=== PATIENT | female | born 1945 | race Caucasian/White ===

== ENCOUNTER 2019-12-02 10:20 | Outpatient (CLI) | payer MEDICARE, OTHER, SELFPAY ==
[2019-12-02 10:46] LABS: Hematocrit 35.7 % (37.0-47.0); Hemoglobin 11.6 g/dL (12.0-15.0); Mean Corpuscular HGB Conc 32.5 g/dl (32-36); Mean Corpuscular Hemoglobin 32.8 pg (26-34); Mean Corpuscular Volume 100.8 fl (80-100); Mean Platelet Volume 9.1 fl (7.4-10.4); Platelet Count Result 351 k/mm3 (150-375); Red Blood Count 3.54 M/mm3 (4.2-5.4); White Blood Count 5.9 K/mm3 (4.5-10.0)
[2019-12-02 11:49] LABS: Alanine Aminotransferase 14 U/L (4-35); Albumin Level 4.6 g/dL (3.5-5.1); Alkaline Phosphatase 76 U/L (38-126); Aspartate Amino Transferase 22 U/L (14-36); Bilirubin,Total 0.4 mg/dL (0.2-1.3); Blood Urea Nitrogen 17 mg/dL (7-17); Calcium 9.6 mg/dL (8.4-10.2); Carbon Dioxide 28 mmol/L (22-30); Chloride 99 mmol/L (98-107); Cholesterol 213 mg/dL (0-200); Estimated Glomerular Filt Rate > 60; Glucose 132 mg/dL (65-105); HDL Direct 74 mg/dL; Potassium 4.7 mmol/L (3.4-5.0); Sodium 139 mmol/L (137-145); Triglycerides 129 mg/dL (<150)
[2019-12-02 11:59] LABS: Free T4 Free Thyroxine 0.94 ng/mL (0.78-2.19); Vitamin D 25 Hydroxy 38.5 ng/mL
[2019-12-02 12:08] LABS: Creatinine Urine 63.9 mg/dL
[2019-12-02 12:24] LABS: Hemoglobin A1C 6.7 % (<5.7)
[2019-12-02 12:47] LABS: LDL Cholesterol Direct 113 mg/dL
[2019-12-02 13:00] LABS: MALB Creatinine Ratio < 9.4 mg/g (0-30); Microalbumin Urine Random < 6.0 mg/L (0-16.7)
[2019-12-02 13:44] LABS: Folic Acid 14.7 ng/mL (2.76->20)
== END 2019-12-02 10:21 | disposition home or self-care (01) ==
PROVIDERS: PCP Internal Medicine; Visit Provider Internal Medicine
DX: R53.83 Other fatigue (principal); E11.9 Type 2 diabetes mellitus without complications; E03.9 Hypothyroidism, unspecified; E55.9 Vitamin D deficiency, unspecified
CPT/HCPCS: 36415; 80053; 80061; 82043; 82306; 82607; 82746; 83036; 84439; 84443; 85027

== ENCOUNTER 2022-07-13 14:22 | Outpatient (CLI) | payer MEDICARE, OTHER, SELFPAY ==
--- NOTE | ~2022-07-13 | US_ITS ---
EXAMINATION: US art doppler w press LE BI DATE: 07/13/2022 15:26 INDICATION: Claudication. Sensation of cold in the left leg. TECHNIQUE: Segmental pressures and plethysmographic and Doppler waveforms of the brachial and lower e xtremity arteries were obtained. COMPARISON: None. FINDINGS: Right and left brachial artery pressures of 160 mm Hg and 168 mm Hg, respectively, are concordant (no rmal difference <= 30 mmHg). The right and left high-thigh pressure indices are unable to be obtained due to inability to occlude the vessels at the cephalad aspect of the thighs. The right ankle-brachial index (MAYNOR) is 0.97 (normal >= 0.9-1). The right great toe-brachial index (T BI) is 0.76 (normal >= 0.6-0.8). The right lower extremity segmental pressure gradients are normal (n ormal gradients <= 20-30 mmHg between adjacent levels on the same leg or the same levels on the two l egs). Arterial waveforms are biphasic with brisk systolic upstrokes throughout the arteries of the ri ght lower limb. The left MAYNOR is 0.96. The left TBI is 0.39. The left lower extremity segmental pressure gradients are normal. Arterial waveforms are biphasic with brisk systolic upstrokes throughout the arteries of the left lower limb. IMPRESSION: 1. 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 2. No significant arterial occlusive disease to the right lower limb with normal right MAYNOR and TBI. Reviewed, dictated and finalized at location B. IMPRESSION: 1. 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 2. No significant arterial occlusive disease to the right lower limb with cma l right MAYNOR and TBI.
== END 2022-07-13 14:23 | disposition home or self-care (01) ==
PROVIDERS: PCP Internal Medicine; Visit Provider Internal Medicine Cardiovascular Disease
DX: I70.213 Atherosclerosis of native arteries of extremities with intermittent claudication, bilateral legs (principal); R20.9 Unspecified disturbances of skin sensation
CPT/HCPCS: 93923

== ENCOUNTER 2022-10-01 12:51 | Outpatient (CLI) | payer MEDICARE, OTHER, SELFPAY ==
[2022-10-01 13:42] LABS: Strep Group A RT-PCR NOT DETECTED (Negative)
[2022-10-01 13:54] LABS: Influenza A QL RT-PCR Negative (Negative); Influenza B QL RT-PCR Negative (Negative); RSV RNA, RT-PCR Negative (Negative); SARS-CoV-2 RNA PCR Negative
== END 2022-10-01 12:52 | disposition home or self-care (01) ==
LOC: ANHLAB 12:53
PROVIDERS: PCP Internal Medicine; Visit Provider Internal Medicine
DX: R50.9 Fever, unspecified (principal); J02.9 Acute pharyngitis, unspecified; Z20.822 Contact with and (suspected) exposure to COVID-19
CPT/HCPCS: 87637; 87651

== ENCOUNTER 2023-07-19 14:51 | Outpatient (CLI) | payer MEDICARE, OTHER, SELFPAY ==
--- NOTE | ~2023-07-19 | US_ITS ---
EXAMINATION: US carotid duplex BI DATE: 07/19/2023 15:46 INDICATION: Left carotid bruit TECHNIQUE: Grayscale, color Doppler, and pulsed Doppler images of the cervical carotid arteries were obtained. The degree of vessel stenosis is placed in one of the following categories: normal, <50%, 5 0-69%, >=70% but less than near-occlusion, near-occlusion, or total occlusion. Note that percent sten osis relative to normal distal artery lumen diameter is indirectly measured from velocity measurement s as described by Karl, et al. Radiology 2003; 229:340-346. COMPARISON: None. FINDINGS: RIGHT: The right common carotid artery (CCA) peak systolic velocity (PSV) is 66 cm/s. The right internal car otid artery (ICA) PSV is 99 cm/s. The right ICA end-diastolic velocity (EDV) is 38 cm/s. The right IC A/CCA PSV ratio is 1.5. Grayscale and color Doppler images yield an estimate of <50% diameter reducti on from plaque in the ICA. The external carotid artery (ECA) PSV is 53 cm/s. There is antegrade flow in the right vertebral artery. LEFT: The left CCA PSV is 73 cm/s. The left ICA PSV is 112 cm/s. The left ICA EDV is 29 cm/s. The left ICA/ CCA PSV ratio is 1.5. Grayscale and color Doppler images yield an estimate of <50% diameter reduction from plaque in the ICA. The ECA PSV is 68 cm/s. There is antegrade flow in the left vertebral artery . IMPRESSION: 1. <50% stenosis in the right internal carotid artery. 2. <50% stenosis in the left internal carotid artery. Reviewed, dictated and finalized at location A.
== END 2023-07-19 14:52 | disposition home or self-care (01) ==
PROVIDERS: PCP Internal Medicine; Visit Provider Internal Medicine Cardiovascular Disease
DX: R09.89 Other specified symptoms and signs involving the circulatory and respiratory systems (principal); I65.23 Occlusion and stenosis of bilateral carotid arteries
CPT/HCPCS: 93880

== ENCOUNTER → 2023-09-06 10:55 | Outpatient (CLI) | payer MEDICARE, OTHER, SELFPAY ==
--- NOTE | ~2023-09-06 | CT_ITS ---
CT of the Abdomen and Pelvis: Indication: Hydronephrosis Technique: 2.5 mm axial scans were obtained through the abdomen and pelvis prior to and following in travenous administration of 130 cc of Omnipaque 350. Dose reduction technique was used on this scan b y utilizing automated exposure control and iterative reconstruction technique. The dose-length produc t (DLP) was 1490.03 mGy-cm. Findings: Scans through the lung bases demonstrate moderate hiatal hernia. The liver, spleen, pancreas, adrenals and kidneys are within normal limits. Gallbladder is absent. Th ere are atherosclerotic calcifications of the aorta. No lymphadenopathy. No bowel obstruction or bowel wall thickening. Sigmoid diverticulosis noted. Images through the pelvis were performed. Urinary bladder unremarkable. There is streak artifact in t he pelvis from right hip arthroplasty. No pelvic mass evident. No ascites. Impression: No hydronephrosis. No abnormality of the system evident. Moderate hiatal hernia. Reviewed, dictated and finalized at location . THE ROAD DRIVER Impression: No hydronephrosis. No abnormality of the system evident. Moderate hiatal hernia.
[2023-09-06 11:25] LABS: Estimated Glomerular Filt Rate > 60
== END ==
PROVIDERS: PCP Internal Medicine; Visit Provider Urology
DX: K44.9 Diaphragmatic hernia without obstruction or gangrene (principal); N13.30 Unspecified hydronephrosis
CPT/HCPCS: 74178; Q9967

== ENCOUNTER 2023-10-03 00:31 | Day surgery (SDC) | payer MEDICARE, OTHER, SELFPAY ==
[2023-08-21 11:53] VITALS: BMI 25.0
[2023-09-13 09:47] VITALS: BMI 25.0
--- NOTE | 2023-09-29 10:15 | SUR.PREOP ---
Patient called regarding upcoming procedure. Left voicemail with date and time of procedure and contact to call with questions.
[2023-10-03 07:51] VITALS: BP 148/41; PULSE 51; RESP 17; TEMP 35.8; O2SAT 100; BMI 25.0
[2023-10-03] MEDS: LACTATED RINGERS 1,000 ML 150 ML IV CONT (08:03)
--- NOTE | 2023-10-03 08:09 | WPDANESEPPF ---
Anes - Initial Pre Proc Eval Procedure: Operation Date: 10/03/23 09:00 Proposed Procedures p Colonoscopy - Brendon José MD Date/Time: 10/03/23 08:09 Surgeon: Brendon José MD Pre Op Diagnosis: Hx colon polyps Patient Data Age: 78 Gender: F Height: 1.65 m Weight: 68.2 kg Last Vital Signs Temp 96.5 F L 10/03/23 07:51 Pulse 51 L 10/03/23 07:51 Resp 17 10/03/23 07:51 BP 148/41 H 10/03/23 07:51 Pulse Ox 100 10/03/23 07:51 O2 Del Method Room Air 10/03/23 07:51 Allergies Allergy/AdvReac Type Severity Reaction Status Date / Time vitamin E (d-alpha AdvReac Mild Rash Verified 10/03/23 07:47 tocopherol) Ouqebky-[id number] Reductase AdvReac Cramping Verified 10/03/23 07:47 Inhibitor of the Muscles Home Medications Medication Instructions Recorded Confirmed Type metoprolol succinate 25 mg 12.5 mg PO BID 11/09/21 10/03/23 History tablet,extended release 24 hr lisinopril 20 mg tablet 40 mg PO DAILY #180 tabs 05/27/23 10/03/23 Rx levothyroxine 75 mcg tablet 75 mcg PO DAILY #90 tabs 06/27/23 10/03/23 Rx lorazepam 0.5 mg tablet (Ativan) 0.5 mg PO BID PRN anxiety #30 tabs 08/07/23 10/03/23 Rx amlodipine 5 mg tablet 5 mg PO DAILY 08/21/23 10/03/23 History pantoprazole 40 mg tablet,delayed See Rx Instructions .Route 09/03/23 10/03/23 Rx release .COMPLEX #90 tabs ergocalciferol (vitamin D2) 1,250 50,000 unit PO WEEKLY #12 caps 09/16/23 10/03/23 Rx mcg (50,000 unit) capsule Patient hx anesthesia problems: none Family hx anesthesia problems: none Results Review: All pre-operative results and documents have been reviewed as part of the pre-operative evaluation. [facility] Surgical History Surgical History History of cataract surgery History of rectal surgery Family History Family History Sibling Cerebrovascular accident, Onset Age: 70 Family history of malignant neoplasm of breast in first degree relative Patient's brother is Family history of malignant neoplasm Mother Patient's mother is Social History Social History Smoking packs per day: 0.5 Smoking cigarettes per day: 10.0 Years smoked: 20 Smoking pack-years: 10.00 Smoking status: Former smoker Tobacco type: cigarettes Second hand tobacco smoke exposure: No Smoking end date: 10/02/99 Alcohol intake: current Drinks per week: 2 Substance use type: does not use Lack of Transportation: YES Lack of Food: Never True Current Housing: Decline to Answer Concerned About Future Housing: Decline to Answer Difficulty Paying Gas/Electric Bills: Decline to Answer Difficulty Paying for Meds: Decline to Answer Currently Unemployed: Decline to Answer Education: Decline to Answer Difficulty w/ Childcare or Family Care: Decline to Answer Living arrangements: alone Anes - Eval Final PreProcedure Day of Procedure 10/03/23 08:09 Patient weight: normal Heart: regular rate and rhythm Lungs: clear to auscultation Airway: Mallampati scale class II Neurological: alert and oriented Last oral intake: >/= 8 hours ASA classification: III Emergent: no Anesthetic plan: proceed Anesthesia type and monitoring: general GIVS and standard monitoring Results Review: All pre-operative results and documents have been reviewed as part of the pre-operative evaluation. Informed Consent: The patient's anesthetic plan and its attendant risks and benefits were discussed with the patient/family/POA. Questions were solicited and answers provided to the satisfaction of the patient/family/POA.
--- NOTE | 2023-10-03 08:10 | PM.HPGS ---
History of Present Illness History of Present Illness Consent: Risks, benefits, and alternatives have been discussed and questions answered. Patient agrees to proceed with procedure. Chief complaint: Hx colon polyps Narrative: Alyssa Coreas is a 78 year old female Referred for colon cancer screening. She had a tubular adenoma removed about 5 years ago. Review of Systems Review of Systems: All systems reviewed & are unremarkable except as noted in HPI and below PMFSH Surgical History Surgical History History of cataract surgery History of rectal surgery Family History Family History Sibling Cerebrovascular accident, Onset Age: 70 Family history of malignant neoplasm of breast in first degree relative Patient's brother is Family history of malignant neoplasm Mother Patient's mother is Social History Social History Smoking packs per day: 0.5 Smoking cigarettes per day: 10.0 Years smoked: 20 Smoking pack-years: 10.00 Smoking status: Former smoker Tobacco type: cigarettes Second hand tobacco smoke exposure: No Smoking end date: 10/02/99 Alcohol intake: current Drinks per week: 2 Substance use type: does not use Lack of Transportation: YES Lack of Food: Never True Current Housing: Decline to Answer Concerned About Future Housing: Decline to Answer Difficulty Paying Gas/Electric Bills: Decline to Answer Difficulty Paying for Meds: Decline to Answer Currently Unemployed: Decline to Answer Education: Decline to Answer Difficulty w/ Childcare or Family Care: Decline to Answer Living arrangements: alone Meds Home Medications and Allergies Home Medications Medication Instructions Recorded Confirmed Type metoprolol succinate 25 mg 12.5 mg PO BID 11/09/21 10/03/23 History tablet,extended release 24 hr lisinopril 20 mg tablet 40 mg PO DAILY #180 tabs 05/27/23 10/03/23 Rx levothyroxine 75 mcg tablet 75 mcg PO DAILY #90 tabs 06/27/23 10/03/23 Rx lorazepam 0.5 mg tablet (Ativan) 0.5 mg PO BID PRN anxiety #30 tabs 08/07/23 10/03/23 Rx amlodipine 5 mg tablet 5 mg PO DAILY 08/21/23 10/03/23 History pantoprazole 40 mg tablet,delayed See Rx Instructions .Route 09/03/23 10/03/23 Rx release .COMPLEX #90 tabs ergocalciferol (vitamin D2) 1,250 50,000 unit PO WEEKLY #12 caps 09/16/23 10/03/23 Rx mcg (50,000 unit) capsule Allergies Allergy/AdvReac Type Severity Reaction Status Date / Time vitamin E (d-alpha AdvReac Mild Rash Verified 10/03/23 07:47 tocopherol) [id number] Reductase AdvReac Cramping Verified 10/03/23 07:47 Inhibitor of the Muscles Vital Signs Vital Signs - 24 hr 10/03/23 07:51 Temperature 35.8 C L Pulse Rate 51 L Respiratory Rate 17 Blood Pressure 148/41 H Pulse Oximetry 100 Oxygen Delivery Room Air Exam Const: General: alert Orientation/consciousness: patient oriented x3 Resp: Auscultation: clear to auscultation bilaterally Cardio: Rhythm: regular rhythm GI: GI Palp: Yes Soft to palpation and No Tenderness to palpation present (GI) Neuro: General: patient oriented x3 Assessment and Plan Assessment and plan (1) Colon cancer screening: Code(s): Z12.11 - Encounter for screening for malignant neoplasm of colon Status: Acute Assessment and Plan: Colonoscopy with possible biopsy or polypectomy or cautery or injection of substances.
[2023-10-03 09:24] VITALS: BP 105/47; PULSE 47; RESP 14; O2SAT 99
[2023-10-03 09:34] VITALS: BP 123/54; PULSE 50; RESP 15; O2SAT 99
[2023-10-03 09:44] VITALS: BP 132/52; PULSE 50; RESP 17; O2SAT 98
== END 2023-10-03 10:13 | disposition home or self-care (01) ==
PROVIDERS: PCP Internal Medicine; Visit Provider Internal Medicine Gastroenterology
PROC: 0DJD8ZZ Inspection of Lower Intestinal Tract, Via Natural or Artificial Opening Endoscopic (ICD-10-PCS; CPT 45378; principal; 2023-10-03 09:00)
DX: Z12.11 Encounter for screening for malignant neoplasm of colon (principal); D12.3 Benign neoplasm of transverse colon; K63.5 Polyp of colon; K57.30 Diverticulosis of large intestine without perforation or abscess without bleeding; Z87.891 Personal history of nicotine dependence
CPT/HCPCS: 45380; 88305; J1596; J2704; J7120

== ENCOUNTER 2024-01-30 12:15 | Outpatient (CLI) | payer MEDICARE, OTHER, SELFPAY ==
--- NOTE | ~2024-01-30 | XR_ITS ---
Clinical Indication: Cough PA and lateral views of the chest: Comparison: 05/22/2016 Findings: The lungs are clear, without evidence of focal consolidation or pleural effusion. Cardiome diastinal silhouette is within normal limits. Bones and soft tissues are unremarkable. Impression: Normal chest. Reviewed, dictated and finalized at [facility]. Impression: Normal chest.
== END 2024-01-30 12:16 ==
LOC: MICIMG 12:17
PROVIDERS: PCP Internal Medicine; Visit Provider Internal Medicine
DX: R05.9 Cough, unspecified (principal)
CPT/HCPCS: 71046

== ENCOUNTER 2024-09-19 10:16 | Outpatient (CLI) | payer MEDICARE, OTHER, SELFPAY ==
--- NOTE | ~2024-09-19 | XR_ITS ---
Right Hand Technique: PA, oblique, and lateral views were obtained. Clinical History: Pain Findings: No acute fracture or dislocation is seen. Osseous alignment is anatomic. There is advanced degenerative change of the first CMC joint, interphalangeal joint of the thumb, and second DIP joint. There are additional mild degenerative changes scattered in the interphalangeal joint of the fingers otherwise. Soft tissues are unremarkable. Impression: Degenerative changes, as above. Reviewed, dictated and finalized at location M. NT ENGINEER Impression: Degenerative changes, as above.
--- NOTE | ~2024-09-19 | XR_ITS ---
Left Hand Technique: PA, oblique, and lateral views were obtained. Clinical History: Pain Findings: No acute fracture or dislocation is seen. Osseous alignment is anatomic. There is moderate to advanced degenerative change of the first CMC joint. Soft tissues are unremarkable. Impression: Moderate to advanced degenerative change of the first CMC joint. Reviewed, dictated and finalized at location . ITAL SOCIAL WORKER Impression: Moderate to advanced degenerative change of the first CMC joint.
== END 2024-09-19 10:17 | disposition home or self-care (01) ==
PROVIDERS: PCP Internal Medicine; Visit Provider Internal Medicine
DX: M18.0 Bilateral primary osteoarthritis of first carpometacarpal joints (principal); M19.041 Primary osteoarthritis, right hand
CPT/HCPCS: 73130

== ENCOUNTER 2024-12-06 13:15 | Outpatient (CLI) | payer MEDICARE, OTHER, SELFPAY ==
--- NOTE | ~2024-12-06 | XR_ITS ---
XR foot LT 2V Ordering provider: Grant Irvin History: . Multiple joint pain . Comparison: None. FINDINGS: BONES: No acute fracture or dislocation. JOINT SPACES: Narrowing of the proximal and distal interphalangeal joints. No tarsal coalition. SOFT TISSUES: Normal. IMPRESSION: No acute osseous abnormality left foot. Reviewed, dictated and finalized at location A. ANALYTICS ANALYST
--- NOTE | ~2024-12-06 | XR_ITS ---
XR sacroiliac joints min 3V Ordering provider: Grant Irvin History: . Multiple joint pain . Comparison: None. FINDINGS: BONES: No acute fracture or dislocation. JOINTS: The bilateral sacroiliac joint spaces appear well maintained. No bony fusion of the sacroilia c joints or bony erosions. Right hip arthroplasty. SOFT TISSUES: Unremarkable. IMPRESSION: NO ACUTE OSSEOUS ABNORMALITY. NORMAL SACROILIAC JOINTS. Reviewed, dictated and finalized at location A. CTOR [place]
--- NOTE | ~2024-12-06 | XR_ITS ---
XR foot RT 2V Ordering provider: Grant Irvin History: . Multiple joint pain . Comparison: None. FINDINGS: BONES: No acute fracture or dislocation. Mild osteopenia of the bones. JOINT SPACES: Narrowing of the proximal and distal interphalangeal joints. No tarsal coalition. SOFT TISSUES: Normal. IMPRESSION: No acute osseous abnormality of the right foot. Reviewed, dictated and finalized at location A. ATRIC NURSE
== END 2024-12-06 13:16 | disposition home or self-care (01) ==
PROVIDERS: PCP Internal Medicine
DX: R53.81 Other malaise (principal); M25.50 Pain in unspecified joint; M79.10 Myalgia, unspecified site
CPT/HCPCS: 72202; 73620

== ENCOUNTER 2025-02-11 08:34 | Outpatient (CLI) | payer MEDICARE, OTHER, SELFPAY ==
--- OUTSIDE RECORDS SUMMARY | 2025-02-11 08:41 | XMS_ITS | Clinical Summary ---
Author Organization [facility] Address [address] [place] [address] Care Team Providers Care Tower Air Traffic Control Specialist Name Role Phone JoshuaSolo chaparro Primary Care Provider Scotty Saini MD Unavailable [phone] Nitin Carpenter MD Unavailable Source Comments [facility],non-owned Affiliates and Associated Physician Practices is amultiple site organization consisting of ambulatory clinics and hospital sitesin [place], [place], [place] and [place]. This disclosure is being madepursuant to the Care Everywhere program and may not contain all information available regarding this patient. Last updated 18.[facility] [employer] Allergies Active Allergy Reactions Criticality Noted Date Comments Hmg-Coa-R Inhibitors Unknown Medium 03/14/2023 rosuvastatin Medications * Be aware that medications may not be up to date on this document. Alwaysverify current medications with the patient. lisinopril (PRINIVIL; ZESTRIL) 20 MG tablet 12/20/2018 Active levothyroxine (SYNTHROID) 75 MCG tablet 12/19/2018 Active pantoprazole EC (PROTONIX) 40 MG tablet 10/16/2018 Active cyclobenzaprine (FLEXERIL) 10 MG tablet Take 1 (one) tablet by mouth nightly as needed for Muscle Spasms Active acetaminophen (TYLENOL) 325 MG tablet Take 1 (one) tablet by mouth every 6 hours as needed Active Ergocalciferol (VITAMIN D2) 10 MCG (400 UNIT) every 7 days 06/02/2020 A ctive LORazepam (ATIVAN) 0.5 MG tablet Take 1 (one) tablet by mouth every 8 hours as needed for Anxiety Active metoprolol tartrate IR (LOPRESSOR) 25 MG tablet Take 1 (one) tablet by mouth 2 times daily Active traMADol (ULTRAM) 50 MG tablet Take 1 (one) tablet by mouth every 6 hours as needed for Pain 20 tablet 03/24/2022 Active Active Problems Problem Noted Date Diagnosed Date Hyperlipidemia LDL goal <70 12/28/202209/02 Ureteral dilatation 10/26/2022 09/26/2023 Nuclear sclerotic cataract of right eye 09/27/2009/26/2023 Overview (09/26/2023): Added automatically from request for surgery [id number] Kidney stone 08/13/2022 09/26/2023 Overview (09/26/2023): Added automatically from request for surgery [id number] Left leg pain 06/22/2022 09/26/2023 PAD (peripheral artery disease) 06/22/2022 09/26/2023 Sensation of cold in leg 06/22/2022 023 Palpitations 07/22/2021 09/26/2023 Anxiety 07/05/2021 09/26/2023 Elevated troponin 07/05/2021 09/26/2023 Hypothyroidism 07/05/2021 09/26/2023 Left shoulder pain 07/05/2021 09/26/2023 Primary hypertension 07/05/2021 09/26/2023 Chronic rhinitis 06/26/2018 09/26/2023 Lesion of throat 06/26/2018 09/26/2023 Prolapse of vaginal vault after hysterectomy 09/26/2023 Prolapse of vaginal wall 03/22/2012 023 Spinal stenosis Arthritis Kyphosis deformity of spine Resolved Problems Problem Noted Date Diagnosed Date Resolved Date POP-Q stage 3 rectocele 10/2021 Family History Medical History Relation Name Comments Other - Cardiac Father Other - Cardiac Mother Relation Name Status Comments Father Mother Social History Tobacco Use Types Packs/Day Years Used Date Smoking Tobacco: Former Smokeless Tobacco: Never Tobacco Cessation:Counseling Given: Not Answered Comments:20 years ago Alcohol Use Standard Drinks/Week Comments Yes 0 (1 standard drink = 0.6 oz pur e alcohol) occasional PHQ-2 Answer Date Recorded PHQ2 TOTAL SCORE 0 04/19/2022 Comments No Sex and Gender Information Value Date Recorded Sex Assigned at Not on file Legal Sex Female 11:09 AM CDT Gender Identity Not on file Sexual Orientation Not on file Last Filed Vital Signs Vital Sign Reading Time Taken Comments Blood Pressure 146/63 02/14/2024 4:13 PM CDT Pulse 61 02/14/2024 4:13 PM CDT Temperature 36.7 C (98 F) 03/24/2022 11:13 AM CDT Respiratory Rate 16 03/24/2022 11:13 AM CDT Oxygen Saturation 95% 03/24/2022 11:13 AM CDT Inhaled Oxygen Concentration - - Weight 69.4 kg (153 lb) 02/14/2024 4:13 PM CDT Height 166.4 cm (5' 5.5) 02/14/2024 4:13 PM CDT Body Mass Index 25.07 02/14/2024 4:13 PM CDT Plan of Treatment Upcoming Encounters Date Type Department Care Team (Late st Contact Info) Description 04/02/2025 4:30 PM CDT Office Visit [facility] - JAVA DEVELOPER [address] [place] [phone] Nitin Carpenter MD [address] [place] [phone] Health Maintenance Due Date Last Done Comments BONE DENSITY TESTING 1945 MEDICARE AWV 12 MONTHS 1945 DTAP/TDAP/TD VACCINES (1 - Tdap) 1965 PNEUMOCOCCAL VACCINE 50+ (1 of 1 - PCV) 01/04/1996 ZOSTER VACCINE (1 of 2) 01/04/1996 Respiratory Syncytial Virus (RSV) Vaccine Pt: or over 60 yrs (1 - 1-dose 75+ series) 2021 COVID-19 VACCINE ( - 2023-2 5 season) 2024 12/04/2020, 11/06/2020 DEPRESSION SCREENING 10/02/2024 04/19/2022 INFLUENZA VACCINE (Season Ended) 2025 HEPATITIS B VACCINE Aged Out No longe r eligible based on patient's age to complete this topic HIB VACCINE Aged Out No longer eligi ble based on patient's age to complete this topic HPV VACCINE Aged Out No longer eligi ble based on patient's age to complete this topic MENINGOCOCCAL (Group B) VACCINE SHARED DECISION-MAKING Aged Out No longer eligible based on patient's age to complete this topic MENINGOCOCCAL GROUPS A/C/Y/W VACCINE Aged Out No longer eligible b ased on patient's age to complete this topic Insurance MEDICARE MEDICAID - OUT OF [facility] MEDICARE [facility] MEDICARE [facility] SPECIALTY RISK Care Teams Tower Air Traffic Control Specialist Relationship Specialty Start Date End Date Solo Jama DO [address] [facility] [address] [place] [address] PCP - General 03/16/18 Scotty Saini MD [address] [phone] Dialysis Clinical Manager Obstetrics and Gynecology 06/18/21 Nitin Carpenter MD [address] [phone] Dialysis Clinical Manager Obstetrics and Gynecology 06/18/21
--- OUTSIDE RECORDS SUMMARY | 2025-02-11 08:41 | XMS_ITS | Encounter Summary ---
Author Organization [facility] Address [address] [place] [address] Care Team Providers Care Refractory Products Supervisor Name Role Phone Christiano Palencia DO Primary Care Provider [phone] Encounter Details Date Type Department Care Team (Late Contact Info) Description 12/26/2024 Results Follow-Up [facility] Cardiology [address] [facility] [address] [place] [address] Precious Garza NP [address] [facility] [address] [place] [address] Social History Tobacco Use Types Packs/Day Years Used Date Smoking Tobacco: Former Cigarettes 0.4 15 1 - 07/22/2001 Smokeless Tobacco: Never Social Connection and Isolat ion Panel [NHANES] Answer Date Recorded In a typical week, how many times do you talk on the phone with family, friends, or neighbors? More than three times a week 07/06/2021 How often do you get togethe r with friends or relatives? More than three times a week 07/06/2021 How often do you attend chur ch or episcopal services? Never 07/06/2021 Do you belong to any clubs o r organizations such as sabianism groups, unions, fraternal or athletic groups, or school groups? Yes 07/06/2021 How often do you attend meet ings of the clubs or organizations you belong to? More than 4 times per year 07/06/2021 Are you , , di vorced, , never , or living with a partner? 07/06/2021 AUDIT-C Answer Date Recorded Q1: How often do you have a drink containing alc ohol? 2-4 times a month 03/23/2023 Q2: How many drinks containi ng alcohol do you have on a typical day when you are drinking? 1 or 2 03/23/2023 Q3: How often do you have si x or more drinks on one occasion? Never 03/23/2023 Overall Financial Resource Strain (CARDIA) Answe r Date Recorded How hard is it for you to pa y for the very basics like food, housing, medical care, and heating? Not very hard 07/06/2021 PRAPARE - Transportation Answer Date Re corded In the past 12 months, has l ack of transportation kept you from medical appointments or from getting medications? No 01/2021 In the past 12 months, has l ack of transportation kept you from meetings, work, or from getting things needed for daily living? No 07/06/2021 Personal Safety Answer Date Recorded Have you ever been in or are you currently in a harmful physical or emotional relationship or is someone making you feel afraid or unsafe? 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
--- OUTSIDE RECORDS SUMMARY | 2025-02-11 08:41 | XMS_ITS | Clinical Summary ---
Author Organization [facility] [address] [place] [address] Care Team Providers Care Project Asst Name Role Phone Christiano Palencia DO Primary Care Provider [phone] Allergies Active Allergy Reactions Criticality Noted Date Comments Eunasjw-Yzk-Uoo Reductase Inhibitors Muscle pain Medium 03/14/[address] (PROTONIX) 40 mg EC tabletIndicatio ns:Stress Ulcer Prophylaxis Take 1 tablet (40 mg total) by mouth daily after lunch 04/29/20 18 Active levothyroxine (SYNTHROID, LEVOTHROID) 75 mcg tabletIndicatio ns:hypothyroidi sm Take 1 tablet (75 mcg total) by mouth service sprinkler helper before breakfast 06/07/20 18 Active ergocalciferol (VITAMIN D) 50,000 unit capsuleIndicati ons:Osteoporosi s,supplement Take 1 capsule (50,000 Units total) by mouth as needed Wednesdays Active LORazepam (ATIVAN) 0.5 mg tabletIndicatio ns:anxiety Take 1 tablet (0.5 mg total) by mouth 2 (two) times a day as needed for anxiety Active acetaminophen (TYLENOL) 325 mg tabletIndicatio ns:Pain Take 2 tablets (650 mg total) by mouth every 6 (six) hours as needed for pain Active cyclobenzaprine (FLEXERIL) 10 mg tabletIndicatio ns:Muscle Spasm Take 1 tablet (10 mg total) by mouth 2 (two) times a day as needed for muscle spasms Active melatonin 5 mg tabletIndicatio ns:sleep Take 1 tablet (5 mg total) by mouth nightly as needed (sleep) Active pseudoephedrine (SUDAFED) 30 mg tabletIndicatio ns:Nasal Congestion Take 1 tablet (30 mg total) by mouth every 4 (four) hours as needed for congestion Active aspirin 81 mg enteric coated tablet Take 1 tablet (81 mg total) by mouth daily 30 tablet 11 12/20/19 23 Active Additional Information Patient not taking.Reported on 11/19/2024 celecoxib (CeleBREX) 200 mg capsule Take 1 capsule (200 mg total) by mouth daily 10/30/19 25 Active lisinopriL (PRINIVIL,ZESTR IL) 20 mg tablet Take 2 tablets (40 mg total) by mouth daily 09/18/20 24 Active amLODIPine (NORVASC) 5 mg tabletIndicatio ns:Primary hypertension Take 1 tablet by mouth once daily 90 tablet 1 11/25/19 25 Active metoprolol tartrate (LOPRESSOR) 25 mg immediate release tabletIndicatio ns:Palpitations Take 2 tablets (50 mg total) by mouth 2 (two) times a day 120 tablet 11 01/03/20 25 Active Praluent Pen 75 mg/mL pen injector INJECT 75MG UNDER THE SKIN EVERY 14 DAYS 2 mL 01/28/20 25 Active Praluent Pen 75 mg/mL pen injector INJECT 75MG UNDER THE SKIN EVERY 14 DAYS 2 mL 12/31/19 25 025 Discontinued Active Problems Problem Noted Date Diagnosed Date Left carotid bruit 07/04/2023 Atypical chest pain 07/04/2023 Hyperlipidemia LDL goal <70 12/28/2022 Nuclear sclerotic cataract of right eye 09/27/20 22 Overview (09/27/2022): Added automatically from request for surgery [id number] Sensation of cold in leg 06/22/2022 Left leg pain 06/22/2022 PAD (peripheral artery disease) 06/22/2022 Palpitations 07/22/2021 Elevated troponin 07/05/2021 Left shoulder pain 07/05/2021 Hypothyroidism 07/05/2021 Primary hypertension 07/05/2021 Anxiety 07/05/2021 Chronic rhinitis 06/26/2018 Lesion of throat 06/26/2018 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 of vaginal wall 03/22/2012 Encounters Date Type Department Care Team Description 01/01/2025 Telephone [place] [address] [place] [phone] Chandu Chowdary MD 12/27/2024 Telephone [place] [address] [place] [phone] Precious Myers NP 12/26/2024 Results Follow-Up [place] [address] [place] [phone] Precious Myers NP 12/26/2024 Results Follow-Up [place] [address] [place] [phone] Precious Myers NP 12/25/2024 10:15 AM CDT Ancillary Procedure [place] [address] [place] [phone] Dyspnea on exertion 12/24/2024 2:30 PM CDT Office Visit [place] [address] [place] [phone] Precious Myers NP Dyspnea on exertion (Primary Dx); Palpitations; Fatigue, unspecified type; PAD (peripheral artery disease); Primary hypertension 12/23/2024 Telephone [place] [address] [place] [phone] Chandu Chowdary MD 12/17/2024 2:30 PM CDT Ancillary Procedure [place] [address] [place] [phone] Palpitations 12/16/2024 Telephone [place] [address] [place] [phone] Chandu Chowdary MD 11/19/2024 12:00 PM CODING ADVISOR Office Visit [place] [address] [place] [phone] Precious Myers NP Palpitations (Primary Dx); PAD (peripheral artery disease); Hyperlipidemia LDL goal <70; Primary hypertension from Last 3 Months Surgical History Surgery Date Site/Laterality Comments TOTAL HIP ARTHROPLASTY 10/02/2010 - 10/01/2011 Right BLADDER SUSPENSION x2 2004 & 2011 HYSTERECTOMY 10/02/2004 - 10/01/2005 BREAST BIOPSY 04/26/2022 Left Benign URETERAL STENT PLACEMENT 08/02/2022 - 08/31/2022 COLONOSCOPY Multiple-- Last ~2018 ANTERIOR AND POSTERIOR VAGINAL REPAIR 03/02/2022 - 03/31/2022 Medical History Medical History Date Comments Cataract Allergic rhinitis Anxiety Bone fracture HTN (hypertension) Dxd 1981 Thyroid disease Acid reflux Gastric ulcer Hypothyroidism Family History Medical History Relation Name Comments Stroke Brother Heart disease Father Heart disease Mother Cancer Other 1 Diabetes Other 1 Family history of diabetes mellitus - (Added by TW Conv) Heart disease Other 1 Hypertension Other 2 Family history of hypertension - (Added by TW Conv) Skin cancer Other 3 Family history of skin cancer - (Added by TW Conv) Anesthesia problems Neg Hx Relation Name Status Comments Brother (Age 64) Father (Age 86) Mother (Age 74) Other 1 Other 2 Other 3 Sister 1 Alive Sister 2 Alive Social History Tobacco Use Types Packs/Day Years Used Date Smoking Tobacco: Former Cigarettes 0.4 15 1 - 07/22/2001 Smokeless Tobacco: Never Tobacco Cessation:Counseling Given: Not Answered Social Connection and Isolat ion Panel [NHANES] Answer Date Recorded In a typical week, how many times do you talk on the phone with family, friends, or neighbors? More than three times a week 07/06/2021 How often do you get togethe r with friends or relatives? More than three times a week 07/06/2021 How often do you attend chur ch or moravian services? Never 07/06/2021 Do you belong to any clubs o r organizations such as yarsanism groups, unions, fraternal or athletic groups, or [...] on file Legal Sex Female 8:38 PM CODING ADVISOR Gender Identity Not on file Sexual Orientation Not on file Obstetrics History Last Filed Vital Signs Vital Sign Reading Time Taken Comments Blood Pressure 140/60 12/24/2024 2:29 PM CDT Pulse 68 12/24/2024 2:29 PM CDT Temperature 36.4 C (97.6 F) 03/23/2023 9:35 AM CDT Respiratory Rate 18 03/23/2023 9:35 AM CDT Oxygen Saturation 95% 12/24/2024 2:29 PM CDT Inhaled Oxygen Concentration - - Weight 69.9 kg (154 lb) 12/24/2024 2:29 PM CDT Height 165.1 cm (5' 5) 12/24/2024 2:29 PM CDT Body Mass Index 25.63 12/24/2024 2:29 PM CDT Plan of Treatment Health Maintenance Due Date Last Done Comments Depression Screening 1945 Hepatitis C Screening 1945 Osteoporosis Screening-Bone Density Scan 1945 DTaP/Tdap/Td Vaccine (1 - Tdap) 1957 Hepatitis B Screening 01/04/1964 Pneumococcal vaccine 65+ (1 of 1 - PCV) 01/04/1996 Zoster Vaccine (1 of 2) 01/04/1996 Well Visit 65+ 2011 Fall Risk Assessment 03/23/2024 03/23/2023 Covid-19 Vaccine (4 - 2023-2 5 season) 2024 07/26/2021, 12/04/2020, 11/06/2020 Influenza Vaccine (Season Ended) 2025 Breast Cancer Screening-Mammogram Discontinued 02/27/2024, 02/27/2024, 02/23/2022, Additional history exists Medical Devices Implanted Type Area Drywall Installer Device Identifier Shelf Expiration Date Model / Serial / Lot [employer] Lens Iol Tecnis Smplcty 1-Pc Clr [place] 19.5 Diopter [id number] - [id number] - [id number] Implanted:Qty: 1 on 10/19/2022 by Darryn Becker MD at [facility] Lens Right: Eye [employer] [id number] 02/26/2025 [id number] / [id number] / [employer] Lens Iol Tecnis Smplcty 1-Pc Clr [place] 22.5 Diopter [id number] - [id number] - [id number] Implanted:Qty: 1 on 11/30/2022 by Darryn Becker MD at [facility] Lens Left: Eye [employer] 03/02/2025 [id number] / [id number] / 0 Artificial Right: Hip [employer] Device Closure Vascade Od5 Fr Femoral Artery [id number] - [id number] Implanted:Qty: 1 on 03/23/2023 by Niko Simpson MD at [facility] 10/24/2024 [id number] / / [id number] Procedures Procedure Name Priority Date/Time Associated Diagnosis Comments TRANSTHORACIC ECHO (TTE) COMPLETE W DOPPLER/CF WO CONTRAST Routine 12/25/2024 10:57 AM CDT Dyspnea on exertion RETICULOCYTES Routine 12/24/2024 3:36 PM CDT Dyspnea on exertion CBC WITH AUTO DIFFERENTIAL Routine 12/24/2024 3:36 PM CDT Dyspnea on exertion EXTENDED/SNF HOLTER PATCH (>48 HOURS UP TO 7 DAYS) Routine 12/17/2024 2:52 PM CDT Palpitations SCREENING MAMMOGRAM BILATERAL W JOSE Schedule Routine, Read Routine (OP Routine) 02/27/2024 2:14 PM CDT Screening mammogram, encounter for from Last 3 Months or Most Recently Relevant to Health Maintenance Results * TRANSTHORACIC ECHO (TTE) COMPLETE W DOPPLER/CF WO CONTRAST (12/25/2024 10:57 AM CDT) Anatomical Region Laterality Modality Ultrasound 12/25/2024 10:1 6 AM CDT Narrative 12/25/2024 2:36 PM CDT [facility]iology [address] [facility] [place] [address] [address] [address] [facility] [address] [address] P:[phone] P:[phone] Echocardiographic Report Patient Name: TIM COREAS : 1945 Study Date: 12/25/2024 10:16:59 AM Gender: F Tech: Location: [facility] Provider: PRECIOUS MYERS Height(Cm): 165 BSA: 1.79 Weight(Kg): 69.9 Heart Rate: 62 BP: 140 / 60 Quality: Good Order Provider: PRECIOUS MYERS PROCEDURES: Echocardiographic Report: Transthoracic echocardiogram with complete 2D, M-Mode, and color Doppler examination. INDICATIONS: Dyspnea on Exertion. MEASUREMENTS: 2D/MM Value Range Doppler Value Range EF Mod BP 65 % [ 54 - 74 ] AV Mean PG 5 mmHg EF Teich MM 60 % [ 54 - 74 ] AV Peak [place] 1.49 m/s [ 1.00 - 1.70 ] LVIDd 2D 4.26 cm [ 3.80 - 5.20 ] AV Peak PG 9 mmHg LVIDd MM 5.05 cm [ 3.80 - 5.20 ] AV VTI 36.00 cm LVIDs 2D 3.14 cm [ 2.20 - 3.50 ] LVOT Peak [place] 0.82 m/s [ 0.70 - 1.10 ] LVIDs MM 3.43 cm [ 2.20 - 3.50 ] LVOT VTI 18.59 cm LVPWd MM 0.72 cm [ 0.60 - 0.90 ] MV E Peak [place] 0.85 m/s [ 0.60 - 1.30 ] IVSd 2D 0.81 cm [ 0.60 - 0.90 ] MV A Peak [place] 1.07 m/s [ 1.00 - 1.20 ] IVSd MM 0.87 cm [ 0.60 - 0.90 ] MV Decel Time 269 msec [ 104 - 258 ] LA Dimension MM 3.55 cm [ 2.70 - 3.80 ] PV Peak Milan 0.93 m/s [ 0.40 - 0.80 ] AoR Diam MM 2.65 cm [ 2.70 - 3.70 ] TR Peak [place] 2.86 m/s [ 1.00 - 2.80 ] LA Volume Index 38 cc/m2 [ 16 - 34 ] TR Peak PG 33 mmHg ACS MM 1.59 cm RVSP 41.00 mmHg [ 10.00 - 36.00 ] Lateral E` 0.07 m/s [ 0.10 - 0.15 ] E` 0.03 m/s E/E` 12 2D/MM Value Range Doppler Value Range - FINDINGS: Interpretation Site: Exam was interpreted at [facility]. Left Ventricle: Normal left ventricular size. Mild concentric left ventricular hypertrophy. Asymmetric septal hypertrophy. Normal global left ventricular systolic function. Impaired diastolic relaxation Grade I. Ejection fraction is measured at 65 %. Right Ventricle: Normal right ventricular size. Normal right ventricular systolic function. Left Atrium: There is moderate enlargement of left atrium. Right Atrium: The right atrium is normal in size. Atrial Septum: Normal atrial septum. Mitral Valve: Mild mitral valve regurgitation. Aortic Valve: No evidence of hemodynamically significant aortic stenosis by Doppler. Trileaflet aortic valve. Mild aortic valve regurgitation. Tricuspid Valve: Estimated peak RVSP is 41 mmHg. Mild tricuspid regurgitation. Pulmonic Valve: Pulmonic valve not well visualized. Trivial regurgitation in the pulmonic valve. Pericardium: Normal pericardium with no significant pericardial effusion. Aorta: Normal aortic root. IVC: Normal size and no respiratory collapse consistent with elevated right atrial pressure (5-10 mmHg). CONCLUSIONS: Normal left ventricular size. Mild concentric left ventricular hypertrophy. Asymmetric septal hypertrophy. Normal global left ventricular systolic function. Impaired diastolic relaxation Grade I. Ejection fraction is measured at 65 %. Normal right ventricular size. Normal right ventricular systolic function. There is moderate enlargement of left atrium. Mild mitral valve regurgitation. Mild aortic valve regurgitation. Estimated peak RVSP is 41 mmHg. Mild tricuspid regurgitation. Electronically Signed By: Carmen Blanca MD 12/25/2024 2:36:12 PM CDT Procedure Note Carmen Blanca MD - 12/25/2024 [facility] Cardiology [address] [facility] [address] [address] [address] [facility] [address] [address] P:[phone] P:[phone] Echocardiographic Report Patient Name: TIM COREAS : 1945 Study Date: 12/25/2024 10:16:59 AM Gender: F Tech: Location: [facility] Provider: PRECIOUS MYERS Height(Cm): 165 BSA: 1.79 Weight(Kg): 69.9 Heart Rate: 62 BP: 140 / 60 Quality: Good Order Provider: PRECIOUS MYERS PROCEDURES: Echocardiographic Report: Transthoracic echocardiogram with complete 2D, M-Mode, and color Dopplerexamination. INDICATIONS: Dyspnea on Exertion. MEASUREMENTS: 2D/MM Value Range Doppler ValueRange EF Mod BP 65 % [ 54 - 74 ] AV Mean PG 5mmHg EF Teich MM 60 % [ 54 - 74 ] AV Peak Milan 1.49m/s [ 1.00 - 1.70 ] LVIDd 2D 4.26 cm [ 3.80 - 5.20 ] AV Peak PG 9mmHg LVIDd MM 5.05 cm [ 3.80 - 5.20 ] AV VTI 36.00cm LVIDs 2D 3.14 cm [ 2.20 - 3.50 ] LVOT Peak [place] 0.82m/s [ 0.70 - 1.10 ] LVIDs MM 3.43 cm [ 2.20 - 3.50 ] LVOT VTI 18.59cm LVPWd MM 0.72 cm [ 0.60 - 0.90 ] MV E Peak [place] 0.85m/s [ 0.60 - 1.30 ] IVSd 2D 0.81 cm [ 0.60 - 0.90 ] MV A Peak [place] 1.07m/s [ 1.00 - 1.20 ] IVSd MM 0.87 cm [ 0.60 - 0.90 ] MV Decel Time 269msec [ 104 - 258 ] LA Dimension MM 3.55 cm [ 2.70 - 3.80 ] PV Peak [place] 0.93m/s [ 0.40 - 0.80 ] AoR Diam MM 2.65 cm [ 2.70 - 3.70 ] TR Peak [place] 2.86m/s [ 1.00 - 2.80 ] LA Volume Index 38 cc/m2 [ 16 - 34 ] TR Peak PG 33mmHg ACS MM 1.59 cm RVSP 41.00mmHg [ 10.00 - 36.00 ] Lateral E` 0.07 m/s [ 0.10 - 0.15 ] E` 0.03 m/s E/E` 12 2D/MM Value Range Doppler ValueRange - FINDINGS: Interpretation Site: Exam was interpreted at [facility]. Left Ventricle: Normal left ventricular size. Mild concentric left ventricularhypertrophy. Asymmetric septal hypertrophy. Normal global left ventricular systolic function.Impaired diastolic relaxation Grade I. Ejection fraction is measured at 65 %. Right Ventricle: Normal right ventricular size. Normal right ventricular systolicfunction. Left Atrium: There is moderate enlargement of left atrium. Right Atrium: The right atrium is normal in size. Atrial Septum: Normal atrial septum. Mitral Valve: Mild mitral valve regurgitation. Aortic Valve: No evidence of hemodynamically significant aortic stenosis by Doppler.Trileaflet aortic valve. Mild aortic valve regurgitation. Tricuspid Valve: Estimated peak RVSP is 41 mmHg. Mild tricuspid regurgitation. Pulmonic Valve: Pulmonic valve not well visualized. Trivial regurgitation in the pulmonicvalve. Pericardium: Normal pericardium with no significant pericardial effusion. Aorta: Normal aortic root. IVC: Normal size and no respiratory collapse consistent with elevated rightatrial pressure (5-10 mmHg). CONCLUSIONS: Normal left ventricular size. Mild concentric left ventricularhypertrophy. Asymmetric septal hypertrophy. Normal global left ventricular systolic function.Impaired diastolic relaxation Grade I. Ejection fraction is measured at 65 %. Normal right ventricular size. Normal right ventricular systolicfunction. There is moderate enlargement of left atrium. Mild mitral valve regurgitation. Mild aortic valve regurgitation. Estimated peak RVSP is 41 mmHg. Mild tricuspid regurgitation. Electronically Signed By: Carmen Blanca MD 12/25/2024 2:36:12 PM CDT Precious Myers NP CV ECHO PROCEDURES Final Result * (ABNORMAL) CBC with auto differential (12/24/2024 3:36 PM CDT) WBC 6.3 3.8 - 10.8 Thousand/u L [facility] RBC, POC 3.53(L) 3.80 - 5.10 Million/uL [facility] Hgb 11.9 11.7 - 15.5 g/dL [facility] Hct 35.8 35.0 - 45.0 % [facility] MCV 101.4(H) 80.0 - 100.0 fL [facility] MCH 33.7(H) 27.0 - 33.0 pg [facility] MCHC 33.2 32.0 - 36.0 g/dL [facility] Comment: For adults, a slight decrease in the calculated MCHC value (in the range of 30 to 32 g/dL) is most likely not clinically significant; however, it should be interpreted with caution in correlation with other red cell parameters and the patient's clinical condition. Rdw 11.9 11.0 - 15.0 % [facility] Platelets 400 140 - 400 Thousand/u L [facility] MPV 9.9 7.5 - 12.5 fL [facility] Neutrophils, abs 2,766 1,500 - 7,800 cells/uL [facility] Lymphocytes, abs 2,778 850 - 3,900 cells/uL [facility] Monocyte abs 466 200 - 950 cells/uL [facility] Eosinophils, abs 258 15 - 500 cells/uL [facility] Basophils, abs 32 0 - 200 cells/uL [facility] Neutrophils 43.9 % [facility] Lymphocyte pct 44.1 % [facility] Monocytes 7.4 % [facility] Eosinophils 4.1 % [facility] Basophils 0.5 % [facility] Blood 12/24/2024 3:36 PM CDT 12/24/2024 3:36 PM CDT Narrative [facility] - 12/25/2024 1:43 AM CDT FASTING:NO FASTING: NO Precious Myers NP LAB BLOOD ORDERABLES Macey l Result [facility] [address] [place] [address] * Reticulocyte Count (12/24/2024 3:36 PM CDT) Reticulocyte count, automated 1.4 % [facility] Reticulocyte, absolute 49,420 20,000 - 80,000 cells/uL [facility] Blood 12/24/2024 3:36 PM CDT 12/24/2024 3:36 PM CDT Narrative [facility] - 12/25/2024 1:43 AM CDT FASTING:NO FASTING: NO Precious Myers [place] FORMER LAB BLOOD ORDERABLES Macey giron Result [facility] [address] [place] [address] * Extended/Halfway Holter Patch (>48 hours up to 7 days) (12/17/2024 2:52 PM CDT) Anatomical Region Laterality Modality Electrocardiogra phy Narrative 12/26/2024 4:00 PM CDT Images from the original result were not included. AMBULATORY WINDSHIELD INSTALLER REPORT Patient Name: Tim Coreas Date of : 1945 Requesting Physician: Precious Myers Date of Interpretation: 12/26/24 Type of Monitor: 72 Hour Holter Monitor Date of the Study / Enrollment Period: 12/17/2024 to 12/19/2024 Indication: Palpitations Quality of the Study: Average. Total analysis time of 2 days, 0 hours, and 8 minutes. Interpretation: Predominant rhythm is sinus rhythm. The average heart rate was 67 beats per minute. The minimum heart rate was 28 beats per minute (which occurred during sleeping hours). The maximum heart rate was 108 beats per minute. No evidence of atrial fibrillation, SVT, pauses, or ventricular tachycardia. There were 2 episodes of second degree AV block type 1. These occurred during sleeping hours. The PAC burden is <1%. The PVC burden is 7%. Patient reported 18 events during the monitoring period. Patient reported symptoms of flutter, skipped bats, shortness of breath, chest pain/pressure that correlated to sinus rhythm with ventricular ectopy, occasionally ventricular trigeminy. Heart rate range of 61bpm to 87bpm. Conclusions: Sinus rhythm with an average heart rate of 67 beats per minute. Intermittent second degree AV block type 1 which occurs during sleeping ours. Frequent PVCs, with a burden of 7%. Patient's symptoms correlate to sinus rhythm with ventricular ectopy, occasionally ventricular trigeminy. Carmen Blanca M.D., [facility] 12/26/24 Procedure Note Carmen Blanca MD - 12/26/2024 Images from the original note were not included. AMBULATORY WINDSHIELD INSTALLER REPORT Patient Name: Tim Coreas Date of : 1945 Requesting Physician: Precious Myers Date of Interpretation: 12/26/24 Type of Monitor: 72 Hour Holter Monitor Date of the Study / Enrollment Period: 12/17/2024 to 12/19/2024 Indication: Palpitations Quality of the Study: Average. Total analysis time of 2 days, 0 hours, and8 minutes. Interpretation: Predominant rhythm is sinus rhythm. The average heart rate was 67 beatsper minute. The minimum heart rate was 28 beats per minute (which occurredduring sleeping hours). The maximum heart rate was 108 beats per minute. No evidence of atrial fibrillation, SVT, pauses, or ventriculartachycardia. There were 2 episodes of second degree AV block type 1. These occurredduring sleeping hours. The PAC burden is <1%. The PVC burden is 7%. Patient reported 18 events during the monitoring period. Patient reportedsymptoms of flutter, skipped bats, shortness of breath, chestpain/pressure that correlated to sinus rhythm with ventricular ectopy,occasionally ventricular trigeminy. Heart rate range of 61bpm to 87bpm. Conclusions: Sinus rhythm with an average heart rate of 67 beats per minute. Intermittent second degree AV block type 1 which occurs during sleepingours. Frequent PVCs, with a burden of 7%. Patient's symptoms correlate to sinus rhythm with ventricular ectopy,occasionally ventricular trigeminy. Carmen Blanca M.D., [facility] 12/26/24 Precious Myers NP CV CARDIAC SERVICES [facility] Final Result * Screening Mammogram Bilateral W Jose (02/27/2024 2:14 PM CDT) Anatomical Region Laterality Modality Breast Bilateral Mammography Narrative 02/28/2024 1:46 PM CDT Mammogram Technique: Bilateral Digital Breast Tomosynthesis, Bilateral C-view 2D Screening mammogram. Views obtained: bilateral craniocaudal and bilateral mediolateral oblique. Computer Aided Detection was performed. Mammogram Findings: The present examination has been compared to prior imaging studies performed at [facility] on 01/04/2021, 02/23/2022 and 03/22/2022. The breasts are almost entirely fatty. There is no suspicious abnormality in either breast. Impression: There is no mammographic evidence of malignancy. Annual screening mammography is recommended. OVERALL FINAL ASSESSMENT: BI-RADS CATEGORY 1: Negative. Procedure Note Debbie Lao MD - 02/28/2024 Mammogram Technique: Bilateral Digital Breast Tomosynthesis, Bilateral C-view 2D Screening mammogram. Views obtained: bilateral craniocaudal and bilateral mediolateral oblique. Computer Aided Detection was performed. Mammogram Findings: The present examination has been compared to prior imaging studies performed at [facility] on 01/04/2021, 02/23/2022 and 03/22/2022. The breasts are almost entirely fatty. There is no suspicious abnormality in either breast. Impression: There is no mammographic evidence of malignancy. Annual screening mammography is recommended. OVERALL FINAL ASSESSMENT: BI-RADS CATEGORY 1: Negative. us Self Screening Mammogram IMG MAMMO PROCEDURES Fi nal Result from Last 3 Months or Most Recently Relevant to Health [place] [address] [facility] MEDICARE [facility] MEDICARE [facility] Advance Directives For more information, please contact: [phone] * Full Code (Latest Code Status on File) Date Activated Date Inactivated Comments 11/30/2022 9:31 AM 11/30/2022 4:00 PM * Full Code Date Activated Date Inactivated Comments 11/02/2022 11:30 AM 11/02/2022 4:36 PM * Full Code Date Activated Date Inactivated Comments 10/19/2022 7:35 AM 10/19/2022 3:11 PM * Full Code Date Activated Date Inactivated Comments 07/05/2021 9:27 PM 07/06/2021 9:46 PM Care Teams Project Asst Relationship Specialty Start Date End Date Christiano Palencia DO [address] [place] [id number] PCP - General Internal Medicine 12/24/24
--- OUTSIDE RECORDS SUMMARY | 2025-02-11 08:41 | XMS_ITS | Clinical Summary ---
Author Organization [facility] Address [address] [place] [address] Care Team Providers Care Java Programming Professor Name Role Phone Solo Jmaa MD Primary Care Provider [phone] Allergies No known active allergies Medications * This document contains information received from the source organization and may not represent a complete record from that organization. lisinopril 20 MG tablet Take 40 mg by mouth daily. Active pantoprazole EC 40 MG tablet Take 40 mg by mouth daily. Active acetaminophen 325 MG tablet Take 650 mg by mouth every 6 (six) hours as needed for Pain. Active LORazepam 0.5 MG tablet Take 0.5 mg by mouth 2 (two) times daily as needed for Anxiety. Active metoprolol tartrate 25 MG tablet Take 25 mg by mouth 2 (two) times daily. Active levothyroxine (SYNTHROID) 75 MCG tablet Take 75 mcg by mouth every morning. Active vitamin D2, ergocalciferol, (DRISDOL) 18160 UNITS capsule Take 50,000 Units by mouth every 7 days. On Fridays Active melatonin 5 MG tablet Take 5 mg by mouth nightly at bedtime. Active diphenhydrAMINE (BENADRYL) 25 MG tablet Take 12.5 mg by mouth nightly at bedtime. Active calcium carbonate (TUMS EX) 750 MG chewable tablet Chew 2 tablets by mouth 3 (three) times daily as needed for Heartburn. Active PROLENSA 0.07 % ophthalmic solution INSTILL 1 DROP INTO RIGHT EYE IN THE MORNING, STARTING 3 DAYS PRIOR TO SURGERY 09/28/2022 Active Active Problems Problem Noted Date Diagnosed Date Ureteral dilatation 10/26/2022 Kidney stone 08/13/2022 Overview (08/13/2022): Added automatically from request for surgery [id number] Family History Medical History Relation Comments Kidney Stones Brother Heart Disease Father Heart Disease Mother Relation Status Comments Brother Father Mother Social History Tobacco Use Types Packs/Day Years Used Date Smoking Tobacco: Former Cigarettes 1 7 - 2001 Smokeless Tobacco: Never Tobacco Cessation:Counseling Given: No Alcohol Use Standard Drinks/Week Comments Yes 0 (1 standard drink = 0.6 oz pur e alcohol) social PHQ-2 Answer Date Recorded Patient Health Questionnaire-2 Score 0 10/26/2022 Comments No Sex and Gender Information Value Date Recorded Sex Assigned at Not on file Legal Sex Female 3:16 PM INSTRUMENT TECHNICIAN APPRENTICE Gender Identity Not on file Sexual Orientation Not on file Last Filed Vital Signs Vital Sign Reading Time Taken Comments Blood Pressure 128/76 10/26/2022 1:57 PM INSTRUMENT TECHNICIAN APPRENTICE Pulse 60 10/26/2022 1:57 PM INSTRUMENT TECHNICIAN APPRENTICE Temperature 36.3 C (97.3 F) 10/26/2022 1:57 PM INSTRUMENT TECHNICIAN APPRENTICE Respiratory Rate 18 10/26/2022 1:57 PM INSTRUMENT TECHNICIAN APPRENTICE Oxygen Saturation 96% 10/26/2022 1:57 PM INSTRUMENT TECHNICIAN APPRENTICE Inhaled Oxygen Concentration - - Weight 73 kg (161 lb) 10/26/2022 1:57 PM INSTRUMENT TECHNICIAN APPRENTICE Height 162.6 cm (5' 4) 10/26/2022 1:57 PM INSTRUMENT TECHNICIAN APPRENTICE Body Mass Index 27.64 10/26/2022 1:57 PM INSTRUMENT TECHNICIAN APPRENTICE Plan of Treatment Health Maintenance Due Date Last Done Comments Hepatitis C 01/04/1964 DTaP, Tdap and Td Vaccines ( 1 - Tdap) 1965 Pneumococcal Vaccine: 50+ Years (1 of 1 - PCV) 01/04/1996 Zoster Vaccines (1 of 2) 01/04/1996 Annual Medicare Wellness Visit 2011 Dexa Scan (General) 2011 RSV Immunization or 60+ Years (1 - 1-dose 75+ series) 2021 COVID-19 Vaccine (4 - 2023-2 5 season) 2024 07/26/2021, 12/04/2020, 11/06/2020 Meningococcal B Vaccine Aged Out No l onger eligible based on patient's age to complete this topic Meningococcal Vaccine Aged Out No rubia tiera eligible based on patient's age to complete this topic RSV Immunizations Under 20 Months Aged Out No longer eligible b ased on patient's age to complete this topic Goals Goal Patient Goal Type Associated Problems Recent Progress Patient-Stated? Author Health - patient able to perform ADLs independently Lifestyle No Haseeb durbin, Angel Vasquez RN Medical Devices Implanted Type Area Mail Order Biller Device Identifier Shelf Expiration Date Model / Serial / Lot Stent Ureteral [place] Sci Contour 6fr X 26cm - [id number] Implanted:Qty : 1 on 08/13/2022 by Cameron Bautista MD at [facility] Stent Right: Ureter [employer] [id number] 06/07/2025 [id number] 30 / / [id number] Stent Ureteral [place] Sci Contour 6fr X 24cm - [id number] Implanted:Qty : 1 on 09/08/2022 by Cameron Bautista MD at [facility] Stent Right: Ureter [employer] 05/04/2025 [id number] 20 / / [id number] Insurance MEDICARE [facility] Advance Directives * Full Code (Latest Code Status on File) Date Activated Date Inactivated Comments 09/08/2022 10:15 AM 09/08/2022 2:52 PM * Full Code Date Activated Date Inactivated Comments 08/13/2022 8:54 PM 08/16/2022 2:13 PM Care Teams Java Programming Professor Relationship Specialty Start Date End Date Solo Jama MD [address] [place] [address] PCP - General INTERNAL MEDICINE 08/30/19
--- OUTSIDE RECORDS SUMMARY | 2025-02-11 08:41 | XMS_ITS | Continuity of Care Document ---
Author Organization [facility] Address [address] [place] [address] Phone Care Team Providers Care Tannery Gummer Name Role Phone Scott OD, Sumit Unavailable Unavailable Procedures Procedure Date No Charge Glasses Check Eye Exam, New Patient Refraction Advance Directives Directive Yes / No Effective Date File Name No Information Encounters Encounter Description Practice Location Reason(s) For Visit Diagnoses Date Provider Providers Copied on Encounter [facility], [address] [place] [address] [address], [place], [place], [id number], tel:[phone] [facility] No Information 7-201 0 Scott OD Sumit. [address] , [address], [place], [place], [facility], . tel:[phone] [facility], [address] [place] [address] [address], [place], [place], [id number], tel:[phone] [facility] No Information 7-201 0 Scott OD Sumit. [address] , [address], [place], [address], [place]. tel:[phone] Family History Family Member Type Diagnosis Age At Onset No Information Payers Payer name Insurance type Covered democrat ID Authoriza tion(s) No Information Social History [...]
--- OUTSIDE RECORDS SUMMARY | 2025-02-11 08:41 | XMS_ITS | Encounter Summary ---
Author Organization [facility] Healthcare Address [address] [place] [address] Care Team Providers Care Vehicle Delivery Worker Name Role Phone Christiano Palencia DO Primary Care Provider Encounter Details Date Type Department Care Team (Late Contact Info) Description 12/26/2024 Results Follow-Up [facility] Medical Group Cardiology [address] [facility] [address] [place] [address] Precious Garza NP [address] [facility] [address] [place] [address] Social History Tobacco Use Types [...] often do you attend chur ch or roman catholic services? Never 07/06/2021 Do you belong to any clubs o r organizations such as sikhism groups, unions, fraternal or athletic groups, or [...] on file Legal Sex Female 8:38 PM CHART SNATCHER Gender Identity Not on file Sexual Orientation Not on file documented as of this encounter Plan of Treatment Not on file documented as of this encounter Visit Diagnoses Not on filedocumented in this encounter Care Teams Vehicle Delivery Worker Relationship Specialty Start Date End Date Christiano Palencia DO [address] [place] [address] PCP - General Internal Medicine 12/24/24 documented as of this encounter
--- OUTSIDE RECORDS SUMMARY | 2025-02-11 08:41 | XMS_ITS | Referral Summary ---
Author Organization [facility] Address [address] [place] [address] Care Team Providers Care Public Health Nutritionist Name Role Phone Christiano Palencia DO Primary Care Provider [phone] Encounters Date Type Department Care Team Description 01/01/2025 Telephone [facility] Medical [facility] Cardiology [address] [place] [address] [place] [address] [phone] Chandu Chowdary MD 12/27/2024 Telephone [facility] Cardiology [address] [place] [address] [place] [phone] Precious Myers NP 12/26/2024 Results Follow-Up [facility] Cardiology [address] [place] [address] [place] [address] [phone] Precious Myers NP 12/26/2024 Results Follow-Up [facility] Cardiology [address] [place] [address] [place] [phone] Precious Myers NP 12/25/2024 10:15 AM CDT Ancillary Procedure [facility] Cardiology [address] [place] [phone] Dyspnea on exertion 12/24/2024 2:30 PM CDT Office Visit [facility] Cardiology [address] [place] [address] [place] [phone] Precious Myers NP Dyspnea on exertion (Primary Dx); Palpitations; Fatigue, unspecified type; PAD (peripheral artery disease); Primary hypertension 12/23/2024 Telephone [facility] Cardiology [address] [place] [address] [place] [phone] Chandu Chowdary MD 12/17/2024 2:30 PM CDT Ancillary Procedure [address] [phone] Palpitations 12/16/[address] [phone] Chandu Chowdary MD 11/19/2024 12:00 PM TELEPATHIST Office Visit [facility] Cardiology [address] [place] [phone] Precious Myers NP Palpitations (Primary Dx); PAD (peripheral artery disease); Hyperlipidemia LDL goal <70; Primary hypertension from Last 3 Months Allergies Active Allergy Reactions Criticality Noted Date Comments Fjwtkdf-Mkv-Uqs Reductase Inhibitors Muscle pain Medium 03/14/[address] (PROTONIX) 40 mg EC tabletIndicatio ns:Stress Ulcer Prophylaxis Take 1 tablet (40 mg total) by mouth daily after lunch 04/29/20 18 Active levothyroxine (SYNTHROID, LEVOTHROID) 75 mcg tabletIndicatio ns:hypothyroidi sm Take 1 tablet (75 mcg total) by mouth utility agent before breakfast 06/07/20 18 Active ergocalciferol (VITAMIN [...] (09/27/2022): Added automatically from request for surgery [id number] Sensation of cold in leg 06/22/2022 Left leg pain 06/22/2022 PAD (peripheral artery disease) 06/22/2022 Palpitations 07/22/2021 Elevated troponin 07/05/2021 Left shoulder pain 07/05/2021 Hypothyroidism 07/05/2021 Primary hypertension 07/05/2021 Anxiety 07/05/2021 Chronic rhinitis 06/26/2018 Lesion of throat 06/26/2018 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 Never 07/06/2021 Do you belong to any clubs o r organizations such as quaker groups, unions, fraternal or athletic groups, or [...] on file Legal Sex Female 8:38 PM TELEPATHIST Gender Identity Not on file Sexual Orientation [...] 12/24/2024 2:29 PM CDT Plan of Treatment Not on file Medical Devices Implanted Type Area Corporate Consultant Device Identifier Shelf Expiration Date Model / Serial / Lot [employer] Lens Iol Tecnis Smplcty 1-Pc Clr [place] 19.5 Diopter [id number] - [id number] - [id number] Implanted:Qty: 1 on 10/19/2022 by Darryn Becker MD at [facility] Lens Right: Eye [employer] [employer] [id number] 02/26/2025 [id number] / [id number] / 0 [employer] Lens Iol Tecnis Smplcty 1-Pc Clr [place] 22.5 Diopter [id number] - [id number] - [id number] Implanted:Qty: 1 on 11/30/2022 by Darryn Becker MD at [facility] Lens Left: Eye [employer] 03/02/2025 [id number] / [id number] / 0 Artificial Right: Hip [employer] Device Closure Vascade Od5 Fr Femoral Artery [id number] - [id number] Implanted:Qty: 1 on 03/23/2023 by Niko Simpson MD at [facility] 10/24/2024 [id number] / / [id number] Procedures Procedure Name Priority Date/Time Associated Diagnosis Comments TRANSTHORACIC ECHO (TTE) COMPLETE W DOPPLER/CF WO CONTRAST Routine 12/25/2024 10:57 AM CDT Dyspnea on exertion RETICULOCYTES Routine 12/24/2024 3:36 PM CDT Dyspnea on exertion CBC WITH AUTO DIFFERENTIAL Routine 12/24/2024 3:36 PM CDT Dyspnea on exertion EXTENDED/HALFWAY HOLTER PATCH (>48 HOURS UP TO 7 [...] AM CDT Narrative 12/25/2024 2:36 PM CDT [facility] Medical Group Cardiology [address] [facility] [address], [place] [address] [address] [address] P:[phone] P:[phone] Echocardiographic Report Patient Name: TIM COREAS : 1945 Study Date: 12/25/2024 10:16:59 AM Gender: F Tech: Location: [facility] Provider: PRECIOUS MYERS Height(Cm): 165 BSA: 1.79 [...] FINDINGS: Interpretation Site: Exam was interpreted at [facility]. Left Ventricle: Normal left ventricular size. Mild [...] Procedure Note Carmen Blanca MD - 12/25/2024 [facility] Medical Group Cardiology [address] [facility] [address], [place] [address] [address] [facility] [address], [place] [address] P:[phone] P:[phone] Echocardiographic Report Patient Name: TIM COREAS : 1945 Study Date: 12/25/2024 10:16:59 AM Gender: F Tech: Location: [place] Ref Provider: PRECIOUS MYERS Height(Cm): 165 BSA: 1.79 [...] FINDINGS: Interpretation Site: Exam was interpreted at [facility]. Left Ventricle: Normal left ventricular size. Mild [...] mmHg. Mild tricuspid regurgitation. Electronically Signed By: aCrmen Blanca MD 12/25/2024 2:36:12 PM CDT Precious Myers NP CV ECHO PROCEDURES Final Result * (ABNORMAL) CBC with auto differential (12/24/2024 3:36 PM CDT) WBC 6.3 3.8 - 10.8 Thousand/u L [facility] RBC, POC 3.53(L) 3.80 - 5.10 Million/uL [facility] Hgb 11.9 11.7 - 15.5 g/dL [facility] [...] Precious Myers NP LAB BLOOD ORDERABLES Macey giron Result [facility] [address] [place] [address] * Reticulocyte Count (12/24/2024 3:36 PM CDT) Pathologist [facility] Reticulocyte count, automated 1.4 % [facility] Reticulocyte, absolute 49,420 20,000 - 80,000 cells/uL [facility] Blood 12/24/2024 3:36 PM CDT 12/24/2024 3:36 PM CDT Narrative [facility] - 12/25/2024 1:43 AM CDT FASTING:NO FASTING: NO Precious Myers NP LAB BLOOD ORDERABLES Macey l Result [facility] [address] [place] [address] * Extended/Correction Holter Patch (>48 hours up to 7 days) (12/17/2024 2:52 PM CDT) Anatomical Region Laterality Modality Electrocardiogra phy Narrative 12/26/2024 4:00 PM CDT Images from the original result were not included. AMBULATORY FIELD CONSULTANT REPORT Patient Name: Tim Coreas Date of [...] ectopy, occasionally ventricular trigeminy. Carmen Blanca M.D., [facility] 12/26/24 Procedure Note Carmen Blanca MD - 12/26/2024 Images from the original note were not included. AMBULATORY FIELD CONSULTANT REPORT Patient Name: Tim Coreas Date of [...] ventricular ectopy,occasionally ventricular trigeminy. Carmen Blanca M.D., [facility] 12/26/24 Precious Myers NP CV CARDIAC SERVICES [facility] Final Result * Screening Mammogram Bilateral W Jose (02/27/2024 2:14 PM CDT) Anatomical Region Laterality Modality Breast Bilateral Mammography Narrative 02/28/2024 1:46 PM CDT Mammogram Technique: Bilateral Digital Breast Tomosynthesis, Bilateral C-view 2D Screening mammogram. Views obtained: bilateral craniocaudal and bilateral mediolateral oblique. Computer Aided Detection was performed. Mammogram Findings: The present examination has been compared to prior imaging studies performed at [facility] on 01/04/2021, 02/23/2022 and 03/22/2022. The [...] compared to prior imaging studies performed at [facility] on 01/04/2021, 02/23/2022 and 03/22/2022. The breasts are almost entirely fatty. There is no suspicious abnormality in either breast. Impression: There is no mammographic evidence of malignancy. Annual screening mammography is recommended. OVERALL FINAL ASSESSMENT: BI-RADS CATEGORY 1: Negative. us Self Screening Mammogram IMG MAMMO PROCEDURES Fi nal Result from Last 3 Months or Most Recently Relevant to Health Maintenance Insurance MEDICARE [employer] MEDICARE [facility] [facility] [place] MEDICARE [facility] Advance Directives For more information, please contact: [phone] * Full Code (Latest Code Status on File) Date Activated Date Inactivated Comments 11/30/2022 9:31 AM 11/30/2022 4:00 PM * Full Code Date Activated Date Inactivated Comments 11/02/2022 11:30 AM 11/02/2022 4:36 PM * Full Code Date Activated Date Inactivated Comments 10/19/2022 7:35 AM 10/19/2022 3:11 PM * Full Code Date Activated Date Inactivated Comments 07/05/2021 9:27 PM 07/06/2021 9:46 PM Care Teams Public Health Nutritionist Relationship Specialty Start Date End Date Christiano Palencia DO [address] [address] PCP - General Internal Medicine 12/24/24
--- NOTE | 2025-03-11 08:42 | P.SLEEP_ITS ---
Sleep Study Date of Study: 02/11/25 Ordering Provider: Precious Garza, VP DIRECTOR OF CREATIVE STRATEGY Interpreting Physician: Nora Dalton DO Sleep Study Type: Split Polysomnogram Height: 1.63 m Weight: 69.853 kg Body Mass Index: 26.4 Neck Circumference (inches): 14 [place]: 7 Reason for Sleep Study Heart palpitations and daytime fatigue Sleep History The patient is a 80-year-old female that had a sleep study ordered by her cardi ologist for evaluation of sleep apnea. The patient denies awakening from sleep short of breath. She occasionally awakens at night with heartburn, belching or cough. She frequently snores but is rarely loud enough that others complain. She occasionally has trouble sleeping when she has a cold. She denies waking up gasping for air throughout the night. She occasionally has breathing problems a t night observed by herself or others. She rarely sweats excessively at night. She occasionally has heart palpitations or irregular heartbeats during the night. She constantly falls asleep during the day but never while driving. She denies sleep paralysis, cataplexy and hypnagogic/ hypnopompic hallucinations. She denies feeling afraid of going to sleep. She occasionally has nightmares. She occasionally remembers her dreams. She frequently has thoughts racing through her mind. She occasionally feels sad or depressed. She frequently has anxiety. She frequently has muscular tension. He rarely notices parts of her body jerk. She denies kicking during the night. She frequently has crawling and aching feelings in her legs but rarely has leg pain during the night. She denies grinding her teeth during sleep and denies awakening with morning jaw pain. She is constantly bothered by pain during the day but rarely awakened by pain during the night. She constantly wakes up feeling stiff in the morning. She constantly wakes up with sore or achy muscles. He constantly wakes up with pain in the neck, spine or other joints. She goes to bed at 10:00 p.m. on both weekdays and weekends. It takes her 1 hour to fall asleep. She wakes up 3-4 times throughout the night to urinate and is able to fall back asleep in 5 minutes or up to several hours. She wakes up at 7:00 a.m. on both weekdays and weekends. She typically gets 5 hours of sleep per night. She will stay in bed for 30-60 minutes after waking up morning. She currently lives alone. She denies consuming any caffeinated beverages within 2 hours of bedtime. She denies engaging in physical exercise before bedtime. She will read watch television before falling asleep. She will take naps in the afternoon or the evening but they are not refreshing. She quit smoking cigarettes 23 years ago. She consumes 19 mg of caffeine per day. She consumes 1-2 alcoholic beverages per month. She denies recreational drug use, [facility], [facility] Surgical History Surgical History History of cataract surgery History of rectal surgery Family History Family History Sibling Cerebrovascular accident, Onset Age: 70 Family history of malignant neoplasm of breast in first degree relative Patient's brother is Family history of malignant neoplasm Mother Patient's mother is Social History Social History Smoking packs per day: 0.5 Smoking cigarettes per day: 10.0 Years smoked: 20 Smoking pack-years: 10.00 Smoking status: Former smoker Tobacco type: cigarettes Second hand tobacco smoke exposure: No Smoking end date: 10/02/99 Alcohol intake: current Drinks per week: 2 Substance use type: does not use Lack of Transportation: YES Lack of Food: Never True Current Housing: Decline to Answer Concerned About Future Housing: Decline to Answer Difficulty Paying Gas/Electric Bills: Decline to Answer Difficulty Paying for Meds: Decline to Answer Currently Unemployed: Decline to Answer Education: Decline to Answer Difficulty w/ Childcare or Family Care: Decline to Answer Living arrangements: alone Medications Home Medications ?Medication ?Instructions ?Recorded ?Confirmed ?Type metoprolol succinate 25 mg 12.5 mg PO BID 11/09/21 09/10/24 History tablet,extended release 24 hr amlodipine 5 mg tablet 5 mg PO DAILY 08/21/23 09/10/24 History cyclobenzaprine 10 mg tablet 10 mg PO .hs PRN muscle spasm #30 03/29/24 09/10/24 Rx tabs levothyroxine 75 mcg tablet 75 mcg PO DAILY #90 tabs 06/21/24 09/10/24 Rx celecoxib 200 mg capsule (Celebrex) 200 mg PO DAILY PRN pain #30 caps 10/30/24 Rx lisinopril 20 mg tablet 40 mg (2 x 20 mg) PO DAILY #180 12/16/24 Rx tabs lorazepam 0.5 mg tablet (Ativan) 0.5 mg PO BID PRN anxiety #30 tabs 01/01/25 Rx azithromycin 250 mg tablet See Rx Instructions PO .COMPLEX #6 01/17/25 Rx (Zithromax) tabs pantoprazole 40 mg tablet,delayed See Rx Instructions .Route 02/11/25 Rx release .COMPLEX #90 tabs ergocalciferol (vitamin D2) 1,250 1,250 mcg PO MONTHLY #4 caps 02/14/25 Rx mcg (50,000 unit) capsule Sleep Procedure A full night split study using the [employer]! multi-channel system recorded the standard physiologic parameters including EEG, EOG, submentalis EMG, anterior tibialis EMG, EKG, body position, nasal and oral airflow using nasal pressure sensor and thermistor.? Respiratory parameters of chest and abdominal movements were recorded with Respiratory Inductance Plethysmography belts. Oxygen saturation was recorded by pulse oximetry. Video monitoring was also performed. Sleep stages, periodic limb movements, and EEG arousals were scored in 30 second epochs according to the criteria of the AASM Scoring Manual. The Apnea-Hypopnea Index was calculated using CMS guidelines for definition of hypopnea with 4% O2 desaturations while scoring respiratory events. Sleep Architecture During the diagnostic portion of the study, the total recording time was 160.7 minutes. The total sleep time was 131.5 minutes. Sleep latency was 7.1 minutes.? REM latency was 68.0 minutes. Sleep Efficiency was 81.9%. The patient had 23 awakenings for an awakening index of 10.5. Wake after sleep onset time was 22.0 minutes. The patient spent 11.0 minutes, 8.4% of total sleep time in Stage N1. The patient spent 91.0 minutes, 69.2% in Stage N2. The patient spent 2.0 minutes, 1.5% in Stage N3. The patient spent 27.5 minutes, 20.9% in Stage REM sleep. At 12:56:43 AM the patient was placed on PAP treatment and was titrated at pressures ranging from 5 cm H20 up to 13/8 cm H20. During the treatment portion of the study, the total recording time was 302.7 minutes.? The total sleep time was 223.5 minutes. Sleep latency was 8.5 minutes. REM latency was 65.0 minutes. Sleep Efficiency was 73.8%. Wake after Sleep Onset time was 71.0 minutes. The patient spent 26.5 minutes, 11.9% of total sleep time in Stage N1. The patient spent 153.5 minutes, 68.7% in Stage N2. The patient spent 0.0 minutes, 0.0% in Stage N3. The patient spent 43.5 minutes, 19.5% in Stage REM. Respiratory Analysis During the diagnostic portion of the study, the patient had 9 hypopneas, 25 mixed apneas, and 75 central apneas for an overall Apnea Hypopnea Index of 49.7 events per hour. The REM Apnea Hypopnea Index was 67.6. The NREM Apnea Hypopnea Index was 45.0. The patient had a Central Apnea Hypopnea Index of 34.2. Akbar- Lo Respirations were present during this study. The patient had a cycle length of 46.9 seconds and a circulation time of 24.6 seconds. During the treatment portion of the study, the patient had 3 hypopneas, 18 mixed apneas, and 151 central apneas for an overall Apnea Hypopnea Index of 46.2 events per hour. The REM Apnea Hypopnea Index was 13.8. The NREM Apnea Hypopnea Index was 54.0. The patient had a Central Apnea Hypopnea Index of 40.5. The patient was started on CPAP 5 cm H2O and titrated to BPAP 13/8 cm H2O due to central and mixed apneas. The patient was able to fall asleep starting on CPAP 5 cm H2O. The patient was able to achieve REM sleep starting on CPAP 7 cm H2O. The lowest residual AHI the patient was able to achieve during this study was 13.3 on BPAP 12/7 cm H2O. On BPAP 12/7 cm H2O, the patient spent 3.5 minutes in NREM and 19 minutes in REM with 5 central apneas, resulting in an AHI of 13.3. The patient had a sleep efficiency of 77.6% on this pressure setting. Arousals During the diagnostic portion of the study, there were a total of 69 arousals for an arousal index of 31.5.? There were 54 respiratory arousals for an index of 24.6. There were 0 periodic limb movement arousals for an index of 0.? There were 5 isolated limb movement arousals for an index of 2.3. There were 12 spontaneous arousals for an index of 5.5. During the treatment portion of the study, there were a total of 91 arousals for an index of 24.4.? There were 74 respiratory arousals for an index of 19.9. There were 0 periodic limb movement arousals for an index of 0.? There were 9 isolated limb movement arousals for an index of 2.4. There were 9 spontaneous arousals for an index of 2.4. Periodic Limb Movements During the diagnostic portion of the study, the patient had 11 isolated limb movements with an index of 5.0. The patient had 0 periodic limb movements with an index of 0. The patient had a total of 11 limb movements with a total limb movement index of 5.0. During the treatment portion of the study, the patient had 17 isolated limb movements with an index of 4.6. The patient had 0 periodic limb movements with an index of 0. The patient had a total of 17 limb movements with a total limb movement index of 4.6. Oximetry Data During the diagnostic portion of the study, the patient had an average oxygen saturation of 92.8% in wake with a minimum oxygen saturation of 81% and a maximum oxygen saturation of 98%. The patient had an average oxygen saturation of 92.5% in sleep with a minimum oxygen saturation of 81.0% and a maximum oxygen saturation of 97.0%. The patient had 106 oxygen desaturations resulting in an Oxygen Desaturation Index of 48.4. The patient spent 8.4 minutes, 5.5% of total sleep time with an oxygen saturation less than 88%. During the treatment portion of the study, the patient had an average oxygen saturation of 94.5% in wake with a minimum oxygen saturation of 86.0% and a maximum oxygen saturation of 99.0%. The patient had an average oxygen saturation of 94.1% in sleep with a minimum oxygen saturation of 85.0% and a maximum oxygen saturation of 98.0%. The patient had 152 oxygen desaturations resulting in an Oxygen Desaturation Index of 40.8. The patient spent 1.4 minutes, 0.5% of total sleep time with an oxygen saturation less than 88%. Snoring Profile Snoring was not present during this study. Cardiac Profile The EKG lead showed second degree [place] 1 heart block. Intermittent bradycardia (HR<40 bpm) and occasional PVCs were seen. During the diagnostic portion of the study, the average pulse rate was 66.6 bpm.? The minimum pulse rate was 36.0 bpm. The maximum pulse rate was 84.0 bpm. During the treatment portion of the study, the average pulse rate was 56.5 bpm.? The minimum pulse rate was 32.0 bpm. The maximum pulse rate was 86.0 bpm. EEG Profile No signs of seizure activity seen. Assessment and Plan Assessment and Plan (1) Central sleep apnea with Akbar-Lo respiration: Code(s): R06.3 - Periodic breathing Status: Acute Assessment and Plan: In the baseline portion of the study, the patient had an overall AHI of 49.7 with desaturation down to 81%. She had a central apnea index of 34.2, which is elevated (normal < 5) along with Akbar Lo Respirations. This is consistent with severe central sleep apnea. The patient was started on CPAP 5 cm H2O and titrated to BPAP 13/8 cm H2O due to central and mixed apneas. We were unable to find a pressure setting that fully resolved her sleep apnea, due to persistent central apneas. I recommend that the patient be prescribed BPAP 12/7cm H2O with back-up rate of 15 breaths/min, size medium Resmed AirTouch F20 full face mask, BPAP filters/tubing and heated humidity. If the compliance data shows an elevated residual AHI or if the patient is unable to tolerate the current settings, I recommend that she have an ASV Titration. This should be used with all episodes of sleep.? Compliance should be reviewed within 31-90 days of starting therapy for usage greater than 4 hours per night greater than 70% of the nights. The patient should be asked about symptoms such as?excessive daytime sleepiness, quality of sleep, decreased nocturia, increased?mental functioning such as memory, mood, and concentration. The patient needs to have an echocardiogram done to rule out cardiogenic causes for central sleep apnea and Akbar Lo respirations. Due to the presence of 2nd degree heart block during the patient's study, I recommend that she have a Holter monitor to rule out any other cardiac arrhythmias. Data The data obtained during this sleep study is adequate for interpretation. Certification This sleep study has been reviewed by a board certified sleep medicine physician.
[2025-03-11 10:17] VITALS: BMI 26.4
== END 2025-02-12 06:50 | disposition home or self-care (01) ==
LOC: ANHCSM 08:35
PROVIDERS: PCP Internal Medicine; Visit Provider Nurse Practitioner Adult Health
DX: G47.10 Hypersomnia, unspecified (principal); R06.3 Periodic breathing; I49.3 Ventricular premature depolarization; I44.1 Atrioventricular block, second degree
CPT/HCPCS: 95811

== ENCOUNTER 2025-06-07 09:21 | Emergency (ER) | payer MEDICARE, OTHER, SELFPAY ==
--- OUTSIDE RECORDS SUMMARY | 2010-04-07 09:15 | XMS_ITS | Continuity of Care Document ---
Author Organization [facility] Address [address] [facility] [address] [place] [address] Phone Care Team Providers Care Commercial Sales Consultant Name Role Phone Scott OD, Sumit Unavailable Unavailable Procedures Procedure Date No Charge Glasses Check Eye Exam, New Patient Refraction Advance Directives Directive Yes / No Effective Date File Name No Information Encounters Encounter Description Practice Location Reason(s) For Visit Diagnoses Date Provider Providers Copied on Encounter [facility], [address] [place] [address] [address], [place], [place], [id number], tel:[phone] [facility] [place] No Information 7-201 0 Scott OD Sumit. [address] [facility] , [address], [place], [place], [facility], . tel:[phone] [facility], [address] [place] [address] [address], [place], [place], [id number], tel:[phone] SEC [facility] No Information 7-201 0 Scott OD Sumit. [address] [facility] , [address], [place], [address], [place]. tel:[phone] Family History Family Member Type Diagnosis Age At Onset No Information Payers Payer name Insurance type Covered constitution party ID Authoriza tion(s) No Information Social History Type Description Quantity Date Captured Comments Sex Female Smoking Status No Information Chief Complaint And Reason For Visit No Information Reason For Referral Reason For Referral No Information History Of Present Illness Encounter Date Complaint History Of Prese nt Illness No Information Functional Status Date Functional Assessmen t No Information Instructions Date Instruction Additional Infor mation No Information Assessments Type Assessment Date No Information Patient Care Teams Name Effective Dates (start - stop) Status Members No Information
[2025-06-07] VITALS (19 sets, daily range): BP systolic 132–150; BP diastolic 51–86; PULSE 66–83; RESP 12–29; TEMP 36.6; O2SAT 95–100
--- NOTE | ~2025-06-07 | XR_ITS ---
EXAMINATION: XR hip LT 2V w AP pelvis DATE: 06/07/2025 12:08 INDICATION: Left hip pain/myalgia TECHNIQUE: Anteroposterior view of the pelvis and anteroposterior and frog-leg lateral views of the left hip were obtained. COMPARISON: 12/06/2024 FINDINGS: Bipolar type right hip hemiarthroplasty in near-anatomic alignment with no periprosthetic lucency to suggest loosening or infection. No fracture or osteonecrosis. Minimal left hip and mild bilateral sacroiliac osteoarthritis. Severe lower lumbar spondylosis. Phleboliths in the pelvis. IMPRESSION: 1. Minimal left hip osteoarthritis. No acute osseous adenopathy. 2. Severe lower lumbar spondylosis. 3. Partially visualized bipolar type right hip hemiarthroplasty. Reviewed, dictated and finalized at location A.
--- NOTE | ~2025-06-07 | XR_ITS ---
EXAMINATION: XR chest 1V DATE: 06/07/2025 12:08 INDICATION: Weakness TECHNIQUE: frontal view of the chest was obtained. COMPARISON: Chest radiograph dated 01/30/2024 FINDINGS: Couple small calcified nodules in the bilateral upper lung zones consistent with old granulomatous disease. No airspace opacities, pulmonary edema, pleural effusion or pneumothorax. Heart size is normal. Retrocardiac opacity suggestive of small to moderate-sized hiatal hernia. IMPRESSION: 1. No acute cardiopulmonary disease. 2. Suggestion of small to moderate sized hiatal hernia. Reviewed, dictated and finalized at location A.
--- NOTE | ~2025-06-07 | XR_ITS ---
EXAMINATION: XR shoulder RT min 2V DATE: 06/07/2025 12:08 INDICATION: Right shoulder pain, arthralgias and myalgias. TECHNIQUE: AP internally and externally rotated, AP oblique externally rotated and transscapular Y views of the right shoulder were obtained. COMPARISON: None FINDINGS: Normal alignment. No fracture.Mild glenohumeral and acromioclavicular osteoarthritis. Small focus of amorphous calcification projecting along the posterior aspect of the greater tuberosity consistent with rotator cuff calcific tendinitis, likely of the distal infraspinatus tendon. Right lung is clear with no pleural effusion or pneumothorax. Vascular calcifications extending along the right upper arm. IMPRESSION: 1. Mild right glenohumeral and acromioclavicular osteoarthritis. No acute osseous or mild. 2. Likely right infraspinatus calcific tendinitis. Reviewed, dictated and finalized at location A. IMPRESSION: 1. Mild right glenohumeral and acromioclavicular osteoarthritis. No acute osseo us or mild. 2. Likely right infraspinatus calcific tendinitis.
--- NOTE | 2025-06-07 10:08 | ED.WEAKNESS ---
HPI - Weakness General Chief complaint: Weakness Stated complaint: body aches Time Seen by Provider: 06/07/25 10:07 Source: patient and family Mode of arrival: ambulatory Limitations: no limitations History of Present Illness HPI Narrative: Patient presents with report of myalgias, arthralgias, and generalized weakness. Patient underwent an ablation procedure with manager software Dr. Hope through [facility] in April. Shortly thereafter she had a viral infection that included a cough that was productive of phlegm as well as diarrhea. The symptoms lasted for approximately 3 weeks and ever since she seemed to develop the symptoms she is currently dealing with. Her primary care physician Dr. Moore ordered labs and based on these labs she has an upcoming hematology appointment scheduled in April for this Monday however she continues to be symptomatic and did not know if she would be able to make it to this appointment. Patient notes that she had some indigestion earlier today for which she took an antacid and Pepto Bismol but otherwise this has not been a primary issue. She reports that be arthralgias are in her left hip and leg as well as her right shoulder but she denies any trauma or injury. She believes that her labs noted some anemia but otherwise does not know if there were any other issues. She denies being on any anticoagulation currently although she had been on Eliquis for 2 months after her procedure and then was told to discontinue it after that which she did . Patient lives at home and ambulates with a walker. She denies unilateral symptoms. She has been using Tylenol every 6 hours for pain. She is unable to use NSAIDs given the rotates her stomach. She notes that her symptoms are causing her to have difficulty walking and sleeping. She denies any fevers but she has been having subjective chills. She feels occasionally short breath. Denies any ongoing cough. Denies any bloody stool, hematuria, hematemesis, hemoptysis, or other obvious bleeding/gums etc. Her last colonoscopy was approximately 1 year ago and reportedly normal. She believes last colonoscopy approximately a year ago, possibly longer Related Data Home Medications ?Medication ?Instructions ?Recorded ?Confirmed ?Last Taken ?Type metoprolol succinate 25 mg 12.5 mg PO BID 11/09/21 09/10/24 10/03/23 History tablet,extended release 24 hr amlodipine 5 mg tablet 5 mg PO DAILY 08/21/23 09/10/24 Unknown History Allergies Allergy/AdvReac Type Severity Reaction Status Date / Time vitamin E (d-alpha AdvReac Mild Rash Verified 09/10/24 14:26 tocopherol) [id number] Reductase AdvReac Cramping Verified 09/10/24 14:26 Inhibitor of the Muscles PMFSH Surgical History Surgical History (Updated 06/07/25 @ 12:33 by Mayela Zelaya MD) History of colonoscopy October 2023 , Dr cleaning History of right hip hemiarthroplasty History of cardiac radiofrequency ablation April 2025, [facility], Dr Hope History of cataract surgery History of rectal surgery Family History Family History Sibling Cerebrovascular accident, Onset Age: 70 Family history of malignant neoplasm of breast in first degree relative Patient's brother is Family history of malignant neoplasm Mother Patient's mother is Social History Social History Smoking packs per day: 0.5 Smoking cigarettes per day: 10.0 Years smoked: 20 Smoking pack-years: 10.00 Smoking status: Former smoker Tobacco type: cigarettes Second hand tobacco smoke exposure: No Smoking end date: 10/02/99 Alcohol intake: current Drinks per week: 2 Substance use type: does not use Lack of Transportation: YES Lack of Food: Never True Current Housing: Decline to Answer Concerned About Future Housing: Decline to Answer Difficulty Paying Gas/Electric Bills: Decline to Answer Difficulty Paying for Meds: Decline to Answer Currently Unemployed: Decline to Answer Education: Decline to Answer Difficulty w/ Childcare or Family Care: Decline to Answer Living arrangements: alone Exam Narrative: GENERAL: Well-appearing, well-nourished, and in no acute distress. HEAD: Normocephalic, atraumatic. EYES: Non injected, non icteric ENT: Nares clear, no rhinorrhea or epistaxis. Gross auditory acuity intact. NECK: Supple. No meningismus. CHEST: Speaking in full sentences. No respiratory distress. HEART: Regular rate and rhythm. ABDOMEN: Soft, nondistended. No rigidity or guarding. Not peritoneal. Rectal exam performed with DANTE Davis present as conference director/assistance. Small non thrombosed external hemorrhoid versus skin tag. Normal rectal tone. No palpable masses. Guaic/FOBT negative. EXTREMITIES: Normal range of motion/able to demonstrate movement at Left hip which is otherwise not tender to palpatin and without pelvic instability on compression/palpation. No lower extremity edema. SKIN: Warm, dry, no rash. NEURO: No focal deficits. Alert and oriented. Answering questions. Following commands. Normal speech without aphasia or dysarthria. PSYCH: Normal mood and affect. Course Vital Signs Vital signs: Vital Signs Pulse Rate 75 06/07/25 09:30 Respiratory Rate 20 06/07/25 09:30 Pulse Oximetry 97 06/07/25 09:30 Temperature 97.8 F 06/07/25 09:31 Pulse Rate 78 06/07/25 14:30 Respiratory Rate 16 06/07/25 14:30 Blood Pressure 142/86 H 06/07/25 14:30 Pulse Oximetry 98 06/07/25 14:30 Oxygen Delivery Room Air 06/07/25 09:31 MDM - Weakness MDM Narrative Medical decision making narrative: 80-year-old female presents with report of myalgias, arthralgias, and generalized weakness, feeling achy for several months. She had a 3 week viral process consisting of a cough and diarrhea shortly after undergoing ablation in April but those symptoms resolved. Pain in left leg/hip and right shoulder without associated trauma. In the emergency department she is afebrile with acceptable vital signs. Systolic blood pressure slightly elevated and-diastolic very slightly decreased but with acceptable mean arterial pressure. Normocytic anemia, a drop of almost 2 g from November 2024 but stable from labs obtained x2 in May per review of patient's portal on phone. Guiaic/FOBT negative on JOSHUA. Last colonoscopy Oct 2023. CRP elevated. BNP mildly elevated but not to a degree to suggest acute heart failure especially based on the reference range of the assay for patient's age. Dimer normal. TSH abnormal (low); T4/T3 ordered. ESR elevated. T4/T3 normal, subclinical hyperthyroidism. Patient does ambulate without difficulty per tech. Only complaining of raysa persistent left leg pain but does so w/o concern. Discussed work up with patient and her family. Advised to keep her upcoming appointment with agricultural economics professor currently scheduled for Monday. At this time I did learn that patient already has a rheumatology. Advised she call them on Monday to make follow up appointment since currently not scheduled for one but I do believe they will have insight into her previous issues and recommendations for modification including but not limited to additional testing and/or medication to be performed in the outpatient/non emergent setting. Patient and family seem somewhat discouraged and frustrated by this but I did not that the fact that she is already established with a longshore equipment operator is a helpful next step. Otherwise stable for discharge as currently no clear indication for admission. Differential Diagnosis Differential diagnosis: Likely acute myocardial infarction, anemia, hypoglycemia, hypothyroidism, rhabdomyolysis, sepsis, dehydration and other (infection; malignancy; heart failure; PE ; immunologic/rheumatologic disorder including but not limited to polymyalgia rheumatica; viral syndrome; arthritis) Medical Records Attestation: I reviewed the patient's medical records. Medical records narrative: Patient has labs through online portal that are reviewed. On May 05, 2025 her hemoglobin was 10.7. On May 15 her hemoglobin was 10.3 and hematocrit was 31.9. Her ferritin and LDH were normal and although her iron binding capacity was normal her iron had been low at 47. Troponin normal. Chemistry unremarkable. == Reviewed EMR for date of last colonoscopy Lab Data Attestation: I reviewed the patient's lab results. Lab results narrative: Urinalysis unremarkable 06/07/25 10:53 06/07/25 10:53 Labs: Lab Results 06/07/25 06/07/25 06/07/25 Range/Units 10:53 10:53 12:28 WBC 6.7 (4.5-10.0) K/mm3 RBC 3.16 L (4.2-5.4) M/mm3 Hgb 10.2 L (12.0-15.0) g/dL Hct 31.1 L (37.0-47.0) % MCV 98.4 (80-100) fl MCH 32.3 (26-34) pg MCHC 32.8 (32-36) g/dl RDW 12.7 (11.5-14.5) % Plt Count 336 (150-375) k/mm3 MPV 8.4 (7.4-10.4) fl Immature Gran % (Auto) 0.2 (0-0.5) % Neut % (Auto) 55.0 (45.5-73.1) % Lymph % (Auto) 31.9 (18.3-44.2) % [place] % (Auto) 8.3 (2.6-8.5) % Eos % (Auto) 3.8 (0-4.4) % Baso % (Auto) 0.8 (0.2-1.2) % Lymph # (Auto) 2.12 (0.9-3.2) K/mm3 [place] # (Auto) 0.6 (0.1-0.6) K/mm3 Eos # (Auto) 0.3 (0-0.3) K/mm3 Baso # (Auto) 0.1 (0.0-0.1) K/mm3 Abs Immat Gran (auto) 0.01 (0.00-0.031) K/mm3 Absolute Neuts (auto) 3.7 (1.3-6.7) K/mm3 Absolute Nucleated RBC 0.000 (0.0-0.012) K/mm3 Nucleated RBC % 0.0 (0.0-0.2) % ESR 108 H (0-20) mm/hr D-Dimer < 0.27 (<0.48) ug/mL Sodium 137 (137-145) mmol/L Potassium 4.2 (3.4-5.0) mmol/L Chloride 105 (98-107) mmol/L Carbon Dioxide 27 (22-30) mmol/L Anion Gap 5 (4-12) mmol/L BUN 13 (7-17) mg/dL Creatinine 0.77 (0.7-1.0) mg/dL Estim Creat Clear Calc 45 ml/min Estimated GFR > 60 (59 - ) Glucose 111 H (65-110) mg/dL Calcium 10.1 (8.4-10.2) mg/dL Magnesium 1.6 (1.6-2.3) mg/dL Total Bilirubin 0.3 (0.2-1.3) mg/dL AST 19 (14-36) U/L ALT 11 (6-35) U/L Alkaline Phosphatase 71 (38-126) U/L Total Creatine Kinase < 20 L (30-135) U/L Troponin I < 0.012 (0.000-0.034) ng/mL C-Reactive Protein 3.9 H (<1.0) mg/dL NT-Pro-B Natriuret Pep 404 H (19.9-100) pg/mL Total Protein 7.6 (6.3-8.2) g/dL Albumin 3.9 (3.5-5.1) g/dL TSH 0.396 L (0.465-4.680) uIU/mL Free T4 1.26 (0.78-2.19) ng/dL Free T3 pg/mL 3.30 Cancelled (2.45-5.93) pg/mL Urine Color Yellow (Yellow) Urine Appearance Clear (Clear) Urine pH 5.0 (5.0-9.0) Ur Specific [place] 1.007 (1.001-1.035) Urine Protein Negative (Negative) mg/dL Urine Glucose (UA) Negative (Negative) mg/dL Urine Ketones Negative (Negative) mg/dL Ur Blood (Man) Negative (Negative) Urine Nitrate Negative (Negative) Urine Bilirubin Negative (Negative) Urine Urobilinogen 0.2 (<2.0) mg/dL Leukocyte Esterase Rfl Negative (Negative) MATTEO/UL Influenza A (RT-PCR) (Negative) Influenza B (RT-PCR) (Negative) RSV (RT-PCR) (Negative) SARS-CoV-2 RNA (RT-PCR) (Negative) 06/07/25 Range/Units 12:53 WBC (4.5-10.0) K/mm3 RBC (4.2-5.4) M/mm3 Hgb (12.0-15.0) g/dL Hct (37.0-47.0) % MCV (80-100) fl MCH (26-34) pg MCHC (32-36) g/dl RDW (11.5-14.5) % Plt Count (150-375) k/mm3 MPV (7.4-10.4) fl Immature Gran % (Auto) (0-0.5) % Neut % (Auto) (45.5-73.1) % Lymph % (Auto) (18.3-44.2) % [place] % (Auto) (2.6-8.5) % Eos % (Auto) (0-4.4) % Baso % (Auto) (0.2-1.2) % Lymph # (Auto) (0.9-3.2) K/mm3 [place] # (Auto) (0.1-0.6) K/mm3 Eos # (Auto) (0-0.3) K/mm3 Baso # (Auto) (0.0-0.1) K/mm3 Abs Immat Gran (auto) (0.00-0.031) K/mm3 Absolute Neuts (auto) (1.3-6.7) K/mm3 Absolute Nucleated RBC (0.0-0.012) K/mm3 Nucleated RBC % (0.0-0.2) % ESR (0-20) mm/hr D-Dimer (<0.48) ug/mL Sodium (137-145) mmol/L Potassium (3.4-5.0) mmol/L Chloride (98-107) mmol/L Carbon Dioxide (22-30) mmol/L Anion Gap (4-12) mmol/L BUN (7-17) mg/dL Creatinine (0.7-1.0) mg/dL Estim Creat Clear Calc ml/min Estimated GFR (59 - ) Glucose (65-110) mg/dL Calcium (8.4-10.2) mg/dL Magnesium (1.6-2.3) mg/dL Total Bilirubin (0.2-1.3) mg/dL AST (14-36) U/L ALT (6-35) U/L Alkaline Phosphatase (38-126) U/L Total Creatine Kinase (30-135) U/L Troponin I (0.000-0.034) ng/mL C-Reactive Protein (<1.0) mg/dL NT-Pro-B Natriuret Pep (19.9-100) pg/mL Total Protein (6.3-8.2) g/dL Albumin (3.5-5.1) g/dL TSH (0.465-4.680) uIU/mL Free T4 (0.78-2.19) ng/dL Free T3 pg/mL (2.45-5.93) pg/mL Urine Color (Yellow) Urine Appearance (Clear) Urine pH (5.0-9.0) Ur Specific [place] (1.001-1.035) Urine Protein (Negative) mg/dL Urine Glucose (UA) (Negative) mg/dL Urine Ketones (Negative) mg/dL Ur Blood (Man) (Negative) Urine Nitrate (Negative) Urine Bilirubin (Negative) Urine Urobilinogen (<2.0) mg/dL Leukocyte Esterase Rfl (Negative) MATTEO/UL Influenza A (RT-PCR) Negative (Negative) Influenza B (RT-PCR) Negative (Negative) RSV (RT-PCR) Negative (Negative) SARS-CoV-2 RNA (RT-PCR) Negative (Negative) Imaging Data Radiologist's impression: IMPRESSION: 1. No acute cardiopulmonary disease. 2. Suggestion of small to moderate sized hiatal hernia. IMPRESSION: 1. Minimal left hip osteoarthritis. No acute osseous adenopathy. 2. Severe lower lumbar spondylosis. 3. Partially visualized bipolar type right hip hemiarthroplasty. IMPRESSION: 1. Mild right glenohumeral and acromioclavicular osteoarthritis. No acute osseous or mild. 2. Likely right infraspinatus calcific tendinitis. ECG Data EKG #1: Attestation: I personally reviewed and interpreted this ECG as follows: ECG completion date: 06/07/25 ECG completion time: 10:42 Prior ECG tracings: available for review (Previous ECG from 05/22/2016 showing normal sinus rhythm with plasma baseline wander/artifact in inferior leads 3 and AVF. No obvious elevations or T-wave inversions.) Interpretation: Normal sinus rhythm at a rate of 67 beats per minute. MD interval prolonged at 275 milliseconds consistent with a first-degree AV block. QRS 76. QT/QTC 377/399. T-wave inversion in 3 but otherwise upright in contiguous inferior leads. No other T-wave inversions. Discharge Plan Discharge Clinical Impression: Arthralgia, Arthralgia of left thigh, Generalized muscle weakness, Elevated erythrocyte sedimentation rate, Hiatal hernia, Osteoarthritis of left hip, Lumbar spondylosis, Subclinical hyperthyroidism Patient Disposition: Home Condition: Stable Instructions: Antibiotic Form, Hiatal Hernia (ED), Osteoarthritis (DC), Subclinical Hyperthyroidism (ED), Weakness (ED), Arthralgia (ED), Shoulder Pain (ED) Additional Instructions: As we discussed in your anemia appears stable from labs drawn earlier in May however does represent a nearly 2g drop from earlier in the year. Recommend keeping your upcoming appointment with hematology this /Monday. I also strongly recommend that you follow-up with your longshore equipment operator in addition to your primary care physician. Return to the emergency department with any new or worsening symptoms. Continue taking your medications as prescribed. Patient Language: Kiswahili Prescriptions: No Action metoprolol succinate 25 mg tablet extended release 24 hr 12.5 mg PO BID amlodipine 5 mg tablet 5 mg PO DAILY cyclobenzaprine 10 mg tablet 10 mg PO .hs PRN (Reason: muscle spasm) Qty: 30 0RF levothyroxine 75 mcg tablet 75 mcg PO DAILY Qty: 90 3RF celecoxib [Celebrex] 200 mg capsule 200 mg PO DAILY PRN (Reason: pain) Qty: 30 2RF Rx Instructions: Take with food lisinopril 20 mg tablet 40 mg PO DAILY Qty: 180 3RF lorazepam [Ativan] 0.5 mg tablet 0.5 mg PO BID PRN (Reason: anxiety) Qty: 30 0RF azithromycin [Zithromax] 250 mg tablet See Rx Instructions PO .COMPLEX Qty: 6 0RF Rx Instructions: For 250 mg dose pack: take 500 mg today (day 1), then 250 mg for 4 days (days 2-5) PO pantoprazole 40 mg tablet,delayed release (DR/EC) See Rx Instructions .ROUTE .COMPLEX Qty: 90 0RF Dose Instruction: TAKE ONE TABLET BY MOUTH EVERY MORNING Rx Instructions: TAKE ONE TABLET BY MOUTH EVERY MORNING ergocalciferol (vitamin D2) 1,250 mcg (50,000 unit) capsule 1,250 mcg PO MONTHLY Qty: 4 2RF Follow-up/Referrals: Christiano Palencia DO [Physician, Internal Medicine] Time of Disposition: 13:59
--- NOTE | 2025-06-07 10:09 | ECG_ITS ---
Test Date: 2025-06-07 10:42:45 Measurements Intervals [place] Rate: 67 P: 17 FL: 275 QRS: -13 QRSD: 76 T: 13 QT: 377 QTc: 399 Interpretive Statements SINUS RHYTHM WITH FIRST DEGREE AV BLOCK LOW QRS VOLTAGE IN PRECORDIAL LEADS [QRS DEFLECTION < 1.0 mV IN CHEST LEADS] VOLTAGE CRITERIA FOR LVH [MEETS CRITERIA IN ONE OF: R(aVL), S(V1), R(V5), R(V5/V6)+S(V1)] ANTERIOR MYOCARDIAL INFARCTION , PROBABLY OLD No previous ECG available for comparison Electronically Signed On 06-07-2025 10:55:42 CDT by Stone Miller M.D.
--- OUTSIDE RECORDS SUMMARY | 2025-06-07 10:28 | XMS_ITS | Encounter Summary ---
Author Organization [facility] Healthcare Address [address] [place] [address] Care Team Providers Care Manual Equipment Mechanic Name Role Phone Christiano Palencia Primary Care Provider [phone] Unknown, Notinfile Primary Care Provider Unavail able Jeannie ROSAS MD, Mario Singleton Unavailable [phone] Encounter Details Date Type Department Care Team (Late st Contact Info) Description 02/11/2025 Orders Only [facility] [place] Information Management [address] [place] [address] Scanning, Provider Social History Tobacco Use Types Packs/Day Years Used Date Smoking Tobacco: Former Cigarettes 0.4 15 1 - 07/22/2001 Smokeless Tobacco: Never Social Connection and Isolation Panel Answer Date Recorded In a typical week, how many times do you talk on the phone with family, friends, or neighbors? More than three times a week 07/06/2021 How often do you get togethe r with friends or relatives? More than three times a week 07/06/2021 How often do you attend chur ch or rastafarian services? 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 Gender Identity Not on file Sexual Orientation Not on file documented as of this encounter Plan of Treatment Not on file documented as of this encounter Procedures Procedure Name Priority Date/Time Associated Diagnosis Comments SLEEP LAB/STUDY - RESULT 02/11/2025 documented in this encounter Results * SLEEP LAB/STUDY - RESULT (02/11/2025) us Provider Scanning Edited Result - Final documented in this encounter Visit Diagnoses Not on filedocumented in this encounter Care Teams Manual Equipment Mechanic Relationship Specialty Start Date End Date Christiano Palencia DO PCP - General Internal Medicine 12/24/24 03/26/25 Unknown, Notinfile PCP - General 03/27/25 Mario Dennis III, MD [address] [address] Consulting Physician Cardiology 05/20/25 documented as of this encounter
--- OUTSIDE RECORDS SUMMARY | 2025-06-07 10:28 | XMS_ITS | Clinical Summary ---
Author Organization [facility] Address [address], [facility] [address] [place] [address] Phone Care Team Providers Care Refrigerated Company Driver Name Role Phone Manuel Moore MD Primary Care Provider [phone] Anderson Billings MD Unavailable Social History Tobacco Use Types Packs/Day Years Used Date Smoking Tobacco: Never Assessed Comments Unknown Sex and Gender Information Value Date Recorded Sex Assigned at Not on file Legal Sex Female 9:18 PM CDT Gender Identity Not on file Sexual Orientation Not on file Plan of Treatment Upcoming Encounters Date Type Department Care Team (Late st Contact Info) Description 06/11/2025 2:00 PM CDT Office Visit [facility] [address] [address] Anderson Billings MD [address] [place] [address] [phone] Health Maintenance Due Date Last Done Comments DEXA Bone Density 1945 Hepatitis C Virus (HCV) Screening 1945 TdaP Immunization 1945 Zoster Immunization (1 of 2) 01/04/1996 Respiratory Syncytial Virus (RSV) Immunization (Adult) (1 - 1-dose 75+ series) 2021 Influenza Immunization (#1) 2025 SARS-COV-2 Immunization ( season) 2025 07/26/2021, 12/04/2020, 11/06/2020 Pneumococcal Immunization (5 0+ years) Completed 07/12/2024 Hepatitis B Immunization Aged Out No longer eligible based on patient's age to complete this topic Human Papillomavirus (HPV) Immunization Aged Out No longer eligible b ased on patient's age to complete this topic Meningococcal Immunization (ACWY) Aged Out No longer eligible b ased on patient's age to complete this topic Rotavirus Immunization Aged Out No lo nger eligible based on patient's age to complete this topic Insurance MEDICARE [facility] Care Teams Refrigerated Company Driver Relationship Specialty Start Date End Date Manuel Moore MD [address] [place] [address] PCP - General Family Medicine 05/26/25 Anderson Billings MD [address] [place] [address] Consulting Physician Oncology 05/26/25
--- OUTSIDE RECORDS SUMMARY | 2025-06-07 10:29 | XMS_ITS | Encounter Summary ---
Author Organization [facility] Address [address] [place] [id number] Care Team Providers Care Perch Mender Name Role Phone Manuel Moore MD Primary Care Provider [phone] Reason for Referral * Consultation (Routine) - Authorized Specialty Diagnoses / Procedures Referred By Mary t Referred To Contact Diagnoses Anemia Procedures OFFICE/OUTPATIENT NEW LOW MDM 30-44 MINUTES OFFICE/OUTPT VISIT,NEW,LEVL IV OFFICE/OUTPT VISIT,NEW,LEVL V OFFICE/OUTPT VISIT,EST,LEVL III OFFICE/OUTPT VISIT,EST,LEVL IV OFFICE/OUTPT VISIT,EST,LEVL V Manuel Moore MD [address] [place] [address] Phone: tel: fax: [place] [address] Phone: tel: fax: Referral ID Status Reason Start Date Expiration Date Visits Requested Visits Authorized [id number] Authorized Specialty Services 05/26/2025 06/22/2026 99 99 Scheduling Instructions Cancer Care specialists [facility]. Reason for Visit * Reason Onset Date Comments Referral 05/21/2025 Encounter Details Date Type Department Care Team ([facility] st Contact Info) Description 05/21/2025 Results Follow-Up [facility] Family & Internal Medicine [id number] [place] [address] Manuel Moore MD [address] [place] [id number] IRON SAT PANEL (IRON,IBC,%SAT), FERRITIN, HAPTOGLOBIN, QUANT, Additional followed-up results: 5 Social History Tobacco Use Types Packs/Day Years Used Date Smoking Tobacco: Former Cigarettes 1 2001 Smokeless Tobacco: Never Alcohol Use Standard Drinks/Week Comments Not Currently 0 (1 standard drink = 0.6 oz pur e alcohol) PHQ-2 Answer Date Recorded Patient Health Questionnaire-2 Score 0 05/05/2025 Comments No Sex and Gender Information Value Date Recorded Sex Assigned at Female 03/25/2025 3:17 PM CDT Legal Sex Female 3:16 PM RN COMMUNITY Gender Identity Not on file Sexual Orientation Not on file documented as of this encounter Functional Status * RETIRED Are you deaf or do you have serious difficulty hearing Answer Date of Assessment Author Status No 08/13/2022 9:32 PM RN COMMUNITY Activ e * RETIRED Are you blind or do you have serious difficulty seeing, even when wearing glasses? Answer Date of Assessment Author Status No 08/13/2022 9:32 PM RN COMMUNITY Activ e * Do you have serious difficulty walking or climbing stairs? Answer Date of Assessment Author Status No 08/13/2022 9:32 PM Rossy Jefferson RN Active * Do you have difficulty dressing or bathing? Answer Date of Assessment Author Status No 08/13/2022 9:32 PM Rossy Jefferson RN Active * Because of a physical, mental, or emotional condition, do you have difficulty doing errands alone such as visiting a doctor's office or shopping? Answer Date of Assessment Author Status No 08/13/2022 9:32 PM Rossy Jefferson RN Active documented as of this encounter Mental Status * Because of a physical, mental, or emotional condition, do you have serious difficulty concentrating, remembering, or making decisions? Answer Entry Date Author Status No 08/13/2022 9:32 PM Rossy Jefferson RN Active documented in this encounter Progress Notes * Manuel Moore MD - 05/23/2025 9:15 AM CDT Refer to [facility] * Emily Dallas - 05/22/2025 1:11 PM CDT Patient called and was read results. Patient agrees to a referral to Hemotology but would like to choose from Dr Acosta top two picks. * Manuel Moore MD - 05/21/2025 2:53 PM CDT She remains anemic, testing does not reveal a cause. Recommend referral to Hematology for further evaluation. documented in this encounter Plan of Treatment Upcoming Encounters Date Type Department Care Team (Late st Contact Info) Description 07/10/2025 2:40 PM CDT Office Visit [facility] Family & Internal Medicine - [address] [phone] Manuel Moore MD [address] [place] [id number] Scheduled Referrals Name Type Priority Associated Diagnoses Orde r Schedule Ambulatory referral to Hematology/Oncology (OTHER) Referral Routine Anemia Ordered: 05/23/2025 documented as of this encounter Goals Goal Patient Goal Type Associated Problems Recent Progress Patient-Stated? Author Health - patient able to perform ADLs independently Lifestyle No Koerken i er, Angel Vasquez RN documented as of this encounter Visit Diagnoses Diagnosis Anemia- Primary Anemia, unspecified documented in this encounter Care Teams Perch Mender Relationship Specialty Start Date End Date Manuel Moore MD [facility] [place] [address] PCP - General INTERNAL MEDICINE 03/25/25 documented as of this encounter
--- OUTSIDE RECORDS SUMMARY | 2025-06-07 10:29 | XMS_ITS | Clinical Summary ---
Author Organization [facility] Address [address] [place] [phone] Care Team Providers Care Program Host Name Role Phone Unknown, Notinfile Primary Care Provider Unavail able Jeannie ROSAS MD, Mario Singleton Unavailable [phone] Allergies Active Allergy Reactions Criticality Noted Date Comments Tdmcqyk-Cxc-Ond Reductase Inhibitors Muscle pain Medium 03/14/[address] (PROTONIX) 40 mg EC tabletIndicatio ns:Stress Ulcer Prophylaxis Take 1 tablet (40 mg total) by mouth daily after lunch 04/29/20 18 Active levothyroxine (SYNTHROID, LEVOTHROID) 75 mcg tabletIndicatio ns:hypothyroidi sm Take 1 tablet (75 mcg total) 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 06/07/20 18 Active ergocalciferol (VITAMIN D) 50,000 unit capsuleIndicati ons:Osteoporosi s,supplement Take 1 capsule (50,000 Units total) by mouth every 30 (thirty) days Active LORazepam (ATIVAN) 0.5 mg tabletIndicatio ns:anxiety [...] by mouth nightly as needed (sleep) Active aspirin 81 mg enteric coated tablet Take 1 tablet (81 mg total) by mouth daily 30 tablet 11 12/20/19 23 Active Additional Information Patient not taking.Reported on 05/19/2025 lisinopriL (PRINIVIL,ZESTR IL) 20 mg tablet Take 2 tablets (40 mg total) by mouth daily 09/18/20 24 Active amLODIPine (NORVASC) 5 mg tabletIndicatio ns:Primary hypertension Take 1 tablet by mouth once daily 90 tablet 1 11/25/19 25 Active metoprolol tartrate (LOPRESSOR) 25 mg immediate release tabletIndicatio ns:Palpitations Take 1 tablet (25 mg total) by mouth 2 (two) times a day 120 tablet 11 02/27/20 25 Active Additional Information Patient not taking.Reported on 05/19/2025 flecainide (TAMBOCOR) 50 mg tablet Take 1 tablet (50 mg total) by mouth 2 (two) times a day 60 tablet 11 02/27/20 25 026 Active Additional Information Patient not taking.Reported on 05/19/2025 hydroxychloroqu ine (PLAQUENIL) 200 mg tablet Take 1 tablet (200 mg total) by mouth 2 (two) times a day 03/14/20 25 Active Praluent Pen 75 mg/mL pen injector INJECT 75MG UNDER THE SKIN EVERY 14 DAYS 2 mL 05/21/20 25 Active Eliquis 5 mg tablet Take 1 tablet by mouth twice daily 60 tablet 06/03/20 25 Active apixaban (ELIQUIS) 5 mg tablet Take 1 tablet (5 mg total) by mouth 2 (two) times a day 60 tablet 1 04/07/20 25 025 Discontinued Praluent Pen 75 mg/mL pen injector INJECT 75MG UNDER THE SKIN EVERY 14 DAYS 2 mL 04/21/20 25 025 Discontinued Active Problems Problem Noted Date Diagnosed Date PVC (premature ventricular contraction) 02/27/20 25 Assessment & Plan (05/20/2025 8:48 AM CDT): -S/p catheter ablation with Dr. Dennis -Continue apixaban up to 2 months post ablation. -Patient verbalized understanding -EKG today demonstrates sinus rhythm with a first-degree block -patient feeling well from an arrhythmia standpoint -follow up in 6 months for 12 lead EKG and clinic visit Assessment & Plan (02/26/2025 1:30 PM CDT): Frequent symptomatic PVCs. Moderate burden, 7% on recent monitor. Occurring in the context of a structurally normal heart. Refractory to metoprolol. I discussed management options with the patient, including alternative antiarrhythmic drug therapy versus mapping and ablation. She prefers to start with antiarrhythmic drug therapy. --Start flecainide 50 mg b.i.d. --Decrease metoprolol to 25 mg b.i.d. --Check 12 lead ECG in 1 week. --Follow-up in 3 months. Consider dose adjustment or mapping/ablation of PVCs if no response. 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 03/22/2012 Encounters Date Type Department Care Team Description 05/19/2025 2:00 PM CDT Office Visit [facility] [address] [phone] Yanet Myrick NP PVC (premature ventricular contraction) (Primary Dx) 04/14/2025 Telephone [facility] [address] [phone] Mario Dennis III, MD 04/08/2025 Telephone [facility] [address] [facility] [address], [place] [address] Elda Chapman NP 04/07/2025 7:46 AM CDT Anesthesia Event [facility] Electrophysiology Lab [address] [place] [phone] Gianni Lux DO 04/07/2025 7:30 AM CDT - 04/07/2025 10:20 AM CDT Surgery [facility] Electrophysiology Lab [address] [place] [phone] Mario Dennis III, MD ABLATION VENTRICULAR TACHYCARDIA (VT) INCLUDES 3D MAPPING (WHEN USED) [id number] 04/07/2025 6:41 AM CDT - 04/07/2025 1:11 PM CDT Hospital Encounter [facility] Electrophysiology Lab [address] [place] [phone] Mario Dennis III, MD PVC (premature ventricular contraction) Discharge Disposition: Discharge to home or self care 03/11/2025 2:00 PM CDT - 03/11/2025 11:59 PM CDT Hospital Encounter [facility] ([facility]) [address] [place] [phone] Visit for screening mammogram Discharge Disposition: Discharge to home or self care 03/10/2025 3:00 PM CDT Procedure visit [facility] [address] [facility] [address] [place] [address] PVC (premature ventricular contraction) from Last 3 Months Surgical History Surgery Date Site/Laterality Comments TOTAL HIP ARTHROPLASTY 10/02/2010 - 10/01/2011 Right BLADDER SUSPENSION x2 2004 & 2012 HYSTERECTOMY 10/02/2004 - 10/01/2005 BREAST BIOPSY 04/26/2022 Left Benign URETERAL STENT PLACEMENT 08/02/2022 - 08/31/2022 COLONOSCOPY Multiple-- Last ~2018 ANTERIOR AND POSTERIOR VAGINAL REPAIR 03/02/2022 - 03/31/2022 CARDIAC ELECTROPHYSIOLOGY PROCEDURE 04/07/2025 N/A Procedure: ABLATION VENTRICULAR TACHYCARDIA (VT) INCLUDES 3D MAPPING (WHEN USED) [id number]; Surgeon: Mario Dennis III, MD; Location: [facility] EP LAB; Service: Cardiovascular; Laterality: N/A; Medical devices from this surgery are in the Medical Devices section. CARDIAC CATHETERIZATION 04/07/2025 N/A Procedure: ULTRASOUND GUIDANCE FOR VASCULAR ACCESS S&I [id number]; Surgeon: Mario Dennis III, MD; Location: [facility] EP LAB; Service: Cardiovascular; Laterality: N/A; Medical devices from this surgery are in the Medical Devices section. CARDIAC ELECTROPHYSIOLOGY PROCEDURE 04/07/2025 N/A Procedure: LEFT HEART CATHETERIZATION TRANSEPTAL PUNCTURE (+) [id number]; Surgeon: Mario Dennis III, MD; Location: [facility] EP LAB; Service: Cardiovascular; Laterality: N/A; Medical devices from this surgery are in the Medical Devices section. CARDIAC ELECTROPHYSIOLOGY PROCEDURE 04/07/2025 N/A Procedure: INTRACARDIAC ECHOCARDIOGRAM (+) [id number]; Surgeon: Mario Dennis III, MD; Location: [facility] EP LAB; Service: Cardiovascular; Laterality: N/A; Medical devices from this surgery are in the Medical Devices section. Medical History Medical History Date Comments Cataract Allergic rhinitis Anxiety Bone fracture HTN (hypertension) Dxd 1981 Thyroid disease Acid reflux Gastric ulcer Hypothyroidism Arthritis Family History Medical History Relation Name Comments Stroke Brother Breast cancer Daughter Heart disease Father Breast cancer Father's Sister Heart disease Mother Cancer Other 1 Diabetes Other 1 Family history of diabetes mellitus - (Added by TW Conv) Heart disease Other 1 Hypertension Other 2 Family history of hypertension - (Added by TW Conv) Skin cancer Other 3 Family history of skin cancer - (Added by TW Conv) Breast cancer Sister 1 Anesthesia problems Neg Hx Relation Name Status Comments Brother (Age 64) Daughter Father (Age 86) Father's Sister Mother (Age 74) Other 1 Other 2 Other 3 Sister 1 Alive Sister 2 Alive Social History Tobacco Use Types Packs/Day Years Used Date Smoking Tobacco: Former Cigarettes 0.4 15 1 - 07/22/2001 Smokeless Tobacco: Never Tobacco Cessation:Counseling Given: Not Answered Social Connection and Isolation Panel Answer Date Recorded In a typical week, how many times do you talk on the phone with family, friends, or neighbors? More than three times a week 07/06/2021 How often do you get togethe r with friends or relatives? More than three times a week 07/06/2021 How often do you attend chur ch or anglican services? Never 07/06/2021 Do you belong to [...] containing alc ohol? 2-4 times a month 04/07/2025 Q2: How many drinks containi ng alcohol do you have on a typical day when you are drinking? 1 or 2 04/07/2025 Q3: How often do you have si x or more drinks on one occasion? Never 04/07/2025 Overall Financial Resource Strain (CARDIA) Answe r [...] making you feel afraid or unsafe? 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 Gender Identity Not on file Sexual Orientation Not on file Obstetrics History Para Term AB IAB SAB Ectopic Multiple Livin g Live Births 8 4 4 Date Outcome GA Total Labor Labor/2nd/3rd Weight Sex Type Anes PTL Sherrie A1 A5 Name Clin Term Term Term Term Last Filed Vital Signs Vital Sign Reading Time Taken Comments Blood Pressure 122/64 05/19/2025 1:57 PM CDT Pulse 86 05/19/2025 1:57 PM CDT Temperature 37 C (98.6 F) 04/07/2025 7:20 AM CDT Respiratory Rate 20 04/07/2025 11:40 AM CDT Oxygen Saturation 98% 04/07/2025 12:25 PM CDT Inhaled Oxygen Concentration - - Weight 66.2 kg (146 lb) 05/19/2025 1:57 PM CDT Height 165.1 cm (5' 5) 05/19/2025 1:57 PM CDT Body Mass Index 24.3 05/19/2025 1:57 PM CDT Plan of Treatment Health Maintenance Due Date Last Done Comments Depression Screening 1945 Hepatitis C Screening 1945 Osteoporosis Screening-Bone Density Scan 1945 DTaP/Tdap/Td Vaccine (1 - Tdap) 1957 Hepatitis B Screening 01/04/1964 Pneumococcal vaccine 65+ (1 of 2 - PCV) 1965 Zoster Vaccine (1 of 2) 1965 Well Visit 65+ 2011 Fall Risk Assessment 03/23/2024 03/23/2023 Covid-19 Vaccine ( - 2024-2 6 season) 2025 07/26/2021, 12/04/2020, 11/06/2020 Influenza Vaccine (#1) 2025 Breast Cancer Screening-Mammogram Discontinued 03/11/2025, 02/27/2024, 02/27/2024, Additional history exists Medical Devices Implanted Type Area Athletic Director Device Identifier Shelf Expiration Date Model / Serial / Lot Fam [employer] Lens Iol Tecnis Smplcty 1-Pc Clr Bureau 19.5 Diopter [id number] - [id number] - [id number] Implanted:Qty : 1 on 10/19/2022 by Darryn Becker MD at [facility] Lens Right: Eye Fam [employer] [id number] 02/26/2025 [id number] / [id number] / 0 [facility] Livestation Lens Iol Tecnis Smplcty 1-Pc Clr Bureau 22.5 Diopter [id number] - [id number] - [id number] Implanted:Qty : 1 on 11/30/2022 by Darryn Becker MD at [facility] Lens Left: Eye [employer] 03/02/2025 [id number] / [id number] / 0 [employer] Livestation Device Vascular Closure Vascade Mvp Xl 10-12fr Venous Strl [id number] - [id number] - [id number] Implanted:Qty : 1 on 04/07/2025 by Mario Dennis III, MD at [facility] Vascular Closure Device [employer] 11/25/2026 [id number] L / [id number] / [id number] [employer] Vascade Mvp 6-12fr Venous Closure [id number] - [id number] - [id number] Implanted:Qty : 1 on 04/07/2025 by Mario Dennis III, MD at [facility] Vascular Closure Device [employer] 02/10/2027 [id number] [id number] / [id number] / [id number] [employer] Vascade Mvp 6-12fr Venous Closure [id number] - [id number] - [id number] Implanted:Qty : 1 on 04/07/2025 by Mario Dennis III, MD at [facility] Vascular Closure Device [employer] 02/10/2027 [id number] [id number] / [id number] / [id number] Artificial Right: Hip [employer] Device Closure Vascade Od5 Fr Femoral Artery [id number] - [id number] Implanted:Qty : 1 on 03/23/2023 by Niko Simpson MD at [facility] [employer] 10/24/2024 [id number] -[id number] / / [id number] Procedures Procedure Name Priority Date/Time Associated Diagnosis Comments ECG 12-LEAD Routine 05/19/2025 2:13 PM CDT PVC (premature ventricular contraction) POCT ACTIVATED CLOTTING TIME, HIGH RANGE Routine 04/07/2025 12:07 PM CDT POCT ACTIVATED CLOTTING TIME, HIGH RANGE Routine 04/07/2025 11:51 AM CDT ECG 12-LEAD STAT 04/07/2025 11:03 AM CDT INTRACARDIAC ECHOCARDIOGRAM Routine 04/07/2025 9:50 AM CDT PVC (premature ventricular contraction) LEFT HEART CATHETERIZATION TRANSEPTAL PUNCTURE Routine 04/07/2025 9:50 AM CDT PVC (premature ventricular contraction) VASCULAR ACCESS US GUIDANCE Routine 04/07/2025 9:50 AM CDT PVC (premature ventricular contraction) ABLATION VT Routine 04/07/2025 9:50 AM CDT PVC (premature ventricular contraction) POCT ACTIVATED CLOTTING TIME, HIGH RANGE Routine 04/07/2025 9:36 AM CDT POCT ACTIVATED CLOTTING TIME, HIGH RANGE Routine 04/07/2025 9:17 AM CDT ECG 12-LEAD STAT 04/07/2025 7:33 AM CDT EGFR Routine 04/07/2025 7:18 AM CDT DIFFERENTIAL AUTO Routine 04/07/2025 7:1 8 AM CDT TYPE AND SCREEN Routine 04/07/2025 7:18 AM CDT CBC WITH AUTO DIFFERENTIAL Routine 04/07/2025 7:18 AM CDT BASIC METABOLIC PANEL Routine 04/07/2025 7:18 AM CDT B CHECK SAMPLE STAT 04/07/2025 7:15 AM CDT SCREENING MAMMOGRAM BILATERAL W JOSE Schedule Routine, Read Routine (OP Routine) 03/11/2025 2:31 PM CDT Visit for screening mammogram ECG 12-LEAD Routine 03/10/2025 PVC (premature ventricular contraction) from Last 3 Months Results * ECG 12 lead (05/19/2025 2:13 PM CDT) us Yanet Myrick DOOR CORE ASSEMBLER ECG ORDERABLES Final Result * POC Activated Clotting Time, High Range (04/07/2025 12:07 PM CDT) ACT See Comment [id number] Comment:Drawn on incorrect p atient per Fannie Zaidi RN. [id number] POC Performer See Comment [facility] Comment:Drawn on incorrect p atient per Fannie Zaidi RN. [id number] Blood 04/07/2025 12:0 7 PM CDT 04/07/2025 12:07 PM CDT us Mario Dennis III, MD LAB BLOOD ORDERABLE S Edited Result - Final [facility] [address] Department [place] [address] * POC Activated Clotting Time, High Range (04/07/2025 11:51 AM CDT) ACT See Comment 87 138 Comment:Test drawn on incorr ect patient per Fannie Zaidi RN. Phone call received by P1 at 04/07/2025 12:34:32 CDT to cancel results. RN asked to send results to correct patient but informed them that would not be possible and test would have to be redrawn [id number] POC Performer See Comment [facility] Comment:Test drawn on incorr ect patient per Fannie Zaidi RN. Phone call received by P1 at 04/07/2025 12:34:32 CDT to cancel results. RN asked to send results to correct patient but informed them that would not be possible and test would have to be redrawn [id number] Blood 04/07/2025 11:5 1 AM CDT 04/07/2025 11:51 AM CDT Mario Dennis III, MD LAB BLOOD ORDERABLE S Edited Result - Final Performing Organization Address City/[facility] [place]/[facility] Co de Phone Number [facility] [address] Department [place] [address] * ECG 12 lead (04/07/2025 11:03 AM CDT) 04/07/2025 11:0 3 AM CDT Narrative [facility] - 04/07/2025 11:20 AM CDT Vent Rate: 65 bpm RR Interval: 910 msec IN Interval: 340 msec QRS Duration: 95 msec QT Interval: 434 msec QTC Interval: 446 msec P-R-T [place]: 66 - -5 - 31 degrees IMPRESSION: SINUS RHYTHM WITH FIRST DEGREE AV BLOCK LOW QRS VOLTAGE IN PRECORDIAL LEADS [QRS DEFLECTION < 1.0 mV IN CHEST LEADS] INFERIOR MYOCARDIAL INFARCTION , PROBABLY OLD [40+ ms Q WAVE AND/OR ST/T ABNORMALITY IN II/aVF] ABNORMAL ECG Electronically Signed By: Jero Welsh MD, [facility] Mario Dennis III, MD ECG ORDERABLES Fin al Result Performing Organization Address [facility] [place]/[facility] Co de Phone Number [facility] * ABLATION VT, VASCULAR ACCESS US GUIDANCE, LEFT HEART CATHETERIZATION TRANSEPTAL PUNCTURE, INTRACARDIAC ECHOCARDIOGRAM (04/07/2025 9:50 AM CDT) Anatomical Region Laterality Modality X-Ray Angiograph y Mario Dennis III, MD CV ELECTROPHYSIOLOG Y PROCS Final Result * (ABNORMAL) POC Activated Clotting Time, High Range (04/07/2025 9:36 AM CDT) ACT 370(H) 87 - 138 sec POC Performer [id number] [facility] Blood 04/07/2025 9:36 AM CDT 04/07/2025 9:36 AM CDT Mario Dennis III, MD LAB BLOOD ORDERABLE S Final Result Performing Organization Address City/[facility]/ZIP Co de Phone Number [facility] [address] [facility] [place] [address] * (ABNORMAL) POC Activated Clotting Time, High Range (04/07/2025 9:17 AM CDT) ACT 367(H) 87 - 138 sec POC Performer [id number] [facility] Blood 04/07/2025 9:17 AM CDT 04/07/2025 9:17 AM CDT Mario Dennis III, MD LAB BLOOD ORDERABLE S Final Result Performing Organization Address [facility] Co de Phone Number [facility] [address] [facility] [place] [address] * ECG 12 lead (04/07/2025 7:33 AM CDT) 04/07/2025 7:33 AM CDT Narrative [facility] - 04/07/2025 8:57 AM CDT Vent Rate: 52 bpm RR Interval: 1136 msec IN Interval: 335 msec QRS Duration: 77 msec QT Interval: 419 msec QTC Interval: 400 msec P-R-T [place]: 41 - -11 - 15 degrees IMPRESSION: SINUS BRADYCARDIA WITH FIRST DEGREE AV BLOCK LOW QRS VOLTAGE IN PRECORDIAL LEADS [QRS DEFLECTION < 1.0 mV IN CHEST LEADS] MODERATE VOLTAGE CRITERIA FOR LVH, CONSIDER NORMAL VARIANT [MEETS CRITERIA IN ONE OF: R(aVL), S(V1), R(V5), R(V5/V6)+S(V1)] POSSIBLE ANTERIOR MYOCARDIAL INFARCTION , PROBABLY OLD [30 ms Q WAVE IN V3/V4, OR R < 0.2 mV IN V4] INFERIOR MYOCARDIAL INFARCTION , PROBABLY OLD [40+ ms Q WAVE AND/OR ST/T ABNORMALITY IN II/aVF] ABNORMAL ECG Electronically Signed By: Jero Welsh MD, FACC Mario Dennis III, MD ECG ORDERABLES Fin al Result [facility] * eGFR (04/07/2025 7:18 AM CDT) eGFR 64 >=60 mL/min/1. 73 m2 Comment: Interpretive Data Reference Interval Normal >/= 90 mL/min/1.73m2 Mildly decreased* 60 - 89 mL/min/1.73m2 Mildly to moderately decreased 45 - 59 mL/min/1.73m2 Moderately to severely decreased 30 - 44 mL/min/1.73m2 Severely decreased 15 - 29 mL/min/1.73m2 Kidney Failure < 15 mL/min/1.73m2 *Relative to young adult level Estimated glomerular filtration rate is determined by the 2020 CKD-EPI equation recommended by the National Kidney Foundation (A Unifying Approach to GFR Estimation: Recommendations of the NKF-ASK Task Force on Reassessing the Inclusion of Race in Diagnosing Kidney Disease, JASN 2020). The CKD-EPI equation should not be used for patients with unstable renal function and has not been validated in children and those over 70. Current interpretive data was last reviewed 2021. Blood 04/07/2025 7:18 AM CDT 04/07/2025 7:28 AM CDT Mario Dennis III, MD LAB BLOOD ORDERABLE S Final Result [facility] [address] Department [place] [address] * Differential, auto (04/07/2025 7:18 AM CDT) Neutrophil abs 2.86 1.50 - 6.50 K/cumm Imm gran abs 0.01 0.00 - 0.10 K/cumm [facility] Lymphocyte abs 3.24 0.80 - 3.30 K/cumm [facility] Monocyte abs 0.63 0.20 - 0.80 K/cumm [facility] Eosinophil abs 0.35 0.00 - 0.50 K/cumm [facility] Basophil abs 0.05 0.00 - 0.10 K/cumm [facility] Neutrophil pct 40.1 % [facility] Comment: Interpretive Data Percent cell count reference ranges are not reported, since discordance with absolute values may lead to misinterpretation of CBC data. Current Interpretive Data was last revised on 2018. Imm gran pct 0.1 % [facility] Comment: Interpretive Data Percent cell count reference ranges are not reported, since discordance with absolute values may lead to misinterpretation of CBC data. Current Interpretive Data was last revised on 2018. Lymphocyte pct 45.4 % [facility] Comment: Interpretive Data Percent cell count reference ranges are not reported, since discordance with absolute values may lead to misinterpretation of CBC data. Current Interpretive Data was last revised on 2018. Monocyte pct 8.8 % [facility] Comment: Interpretive Data Percent cell count reference ranges are not reported, since discordance with absolute values may lead to misinterpretation of CBC data. Current Interpretive Data was last revised on 2018. Eosinophil pct 4.9 % [facility] Comment: Interpretive Data Percent cell count reference ranges are not reported, since discordance with absolute values may lead to misinterpretation of CBC data. Current Interpretive Data was last revised on 2018. Basophil pct 0.7 % [facility] Comment: Interpretive Data Percent cell count reference ranges are not reported, since discordance with absolute values may lead to misinterpretation of CBC data. Current Interpretive Data was last revised on 2018. Blood 04/07/2025 7:18 AM CDT 04/07/2025 7:28 AM CDT us Mario Dennis III, MD LAB BLOOD ORDERABLE S Final Result [facility] [address] Department [place] [address] * (ABNORMAL) CBC with auto differential (04/07/2025 7:18 AM CDT) WBC 7.14 3.80 - 9.90 K/cumm Hgb 10.6(L) 11.9 - 15.5 g/dL [facility] Hct 32.2(L) 35.6 - 45.5 % [facility] Plt 314 150 - 400 K/cumm [facility] MPV 9.1 9.1 - 12.3 fL [facility] RBC 3.21(L) 3.90 - 5.20 M/cumm [facility] MCV 100.3(H) 81.3 - 96.4 fL [facility] MCH 33.0 27.1 - 33.3 pg [facility] MCHC 32.9 32.3 - 35.7 g/dL [facility] RDW CV 11.9 11.1 - 14.9 % [facility] RDW SD 44.0 35.7 - 48.1 fL [facility] NRBC abs 0.00 0.00 - 0.01 K/cumm [facility] Blood 04/07/2025 7:18 AM CDT 04/07/2025 7:28 AM CDT Narrative [facility] - 04/07/2025 7:36 AM CDT If most recent labs were drawn prior to 4 AM, draw only prior to initiating procedure. us Mario Dennis III, MD LAB BLOOD ORDERABLE S Final Result Performing Organization Address City/[facility] de Phone Number [facility] [address] Department [place] [address] * Type and screen (04/07/2025 7:18 AM CDT) Kuldip, indirect Negative ABO Rh O Negative [facility] Blood 04/07/2025 7:18 AM CDT 04/07/2025 7:35 AM CDT Narrative [facility] - 04/07/2025 8:20 AM CDT Has the patient had Daratumumab or Isatuximab in the past 6 months?->Unknown us Mario Dennis III, MD LAB BLOOD BANK TEST ORDERABLES Final Result Performing Organization Address City/[facility] Co de Phone Number [facility] [address] [place] [address] * (ABNORMAL) Basic metabolic panel (04/07/2025 7:18 AM CDT) Sodium 140 135 - 145 mmol/L Potassium, pl 4.1 3.3 - 4.9 mmol/L [facility] Chloride 108 97 - 110 mmol/L [facility] CO2 20(L) 22 - 32 mmol/L [facility] Anion gap 12 2 - 15 mmol/L [facility] BUN 22 6 - 25 mg/dL [facility] Creatinine 0.91 0.60 - 1.10 mg/dL [facility] Glucose 132 70 - 199 mg/dL [facility] Comment: Interpretive Data Fasting glucose >/= 126 mg/dl is diagnostic for diabetes. Fasting is defined as no caloric intake for at least 8 hours. Fasting glucose between 100 mg/dl to 125 mg/dl is diagnostic of prediabetes. In a patient with classic symptoms of hyperglycemia or hyperglycemic crisis, a random glucose >/= 200 mg/dl is diagnostic for diabetes. In the absence of unequivocal hyperglycemia, results should be confirmed by repeat testing. The classification and Diagnosis of Diabetes Diabetes Care 2021; 46: S19-S40. Current interpretive data was last revised 2022. Calcium 10.1 8.5 - 10.3 mg/dL [facility] Blood 04/07/2025 7:18 AM CDT 04/07/2025 7:28 AM CDT Mario Dennis III, MD LAB BLOOD ORDERABLE S Final Result [facility] [address] Department [place] [address] * Check Sample (04/07/2025 7:15 AM CDT) ABO Rh O Negative MBC [facility] OTHER 04/07/2025 7:15 AM CDT 04/07/2025 8:14 AM CDT Mario Dennis III, MD LAB BLOOD ORDERABLE S Final Result [facility] [address] Department [place] [address] MBC * Screening Mammogram Bilateral W Jose (03/11/2025 2:31 PM CDT) Anatomical Region Laterality Modality Breast Bilateral Mammography Impressions 03/12/2025 9:41 AM CDT Bilateral No evidence of malignancy in either breast. OVERALL BI-RADS FINAL ASSESSMENT: 1 - Negative RECOMMENDATION: Recommend bilateral annual screening mammography. Narrative 03/12/2025 9:41 AM CDT EXAMINATION: Screening Mammogram Bilateral W Jose: 03/11/2025 COMPARISON: Relevant prior studies available at the time of interpretation were reviewed. TECHNIQUE: Mammography was performed with 2D and digital breast tomosynthesis (DBT) images. CAD was utilized. BREAST PARENCHYMAL COMPOSITION: The breasts are almost entirely fatty. FINDINGS: Bilateral There is no suspicious mass, calcification, or architectural distortion in either breast. Self Screening Mammogram IMG MAMMO PROCEDURES Fi nal Result * ECG 12 lead (03/10/2025) 03/10/2025 Mario Dennis III, MD ECG ORDERABLES Fin al Result from Last 3 Months Insurance MEDICARE [employer] [place] MEDICARE [employer] [place] MEDICARE [facility] Advance Directives For more information, please contact: [phone] * Full Code (Latest Code Status on File) Date Activated Date Inactivated Comments 11/30/2022 9:31 AM 11/30/2022 4:00 PM * Full Code Date Activated Date Inactivated Comments 11/02/2022 11:30 AM 11/02/2022 4:36 PM * Full Code Date Activated Date Inactivated Comments 10/19/2022 7:35 AM 10/19/2022 3:11 PM * Full Code Date Activated Date Inactivated Comments 07/05/2021 9:27 PM 07/06/2021 9:46 PM Care Teams Program Host Relationship Specialty Start Date End Date Unknown, Notinfile PCP - General 03/27/25 Mario Dennis III, MD [address] [address] Consulting Physician Cardiology 05/20/25
--- OUTSIDE RECORDS SUMMARY | 2025-06-07 10:29 | XMS_ITS | Encounter Summary ---
Author Organization [facility] Address [address] [place] [address] Care Team Providers Care Wardrobe Supervisor Name Role Phone Manuel Moore MD Primary Care Provider [phone] Encounter Details Date Type Department Care Team (Late st Contact Info) Description 05/22/2025 Results Follow-Up [facility] Family & Internal Medicine [facility] [address] [place] [address] Yasmani Vu, [address] [place] [address] [id number] SOLUBLE TRANSFERRIN RECEPTOR Social History Tobacco Use Types Packs/Day Years Used Date Smoking Tobacco: Former Cigarettes 1 987 - 2001 Smokeless Tobacco: Never Alcohol Use Standard Drinks/Week Comments Not Currently 0 (1 standard drink = 0.6 oz pur e alcohol) PHQ-2 Answer Date Recorded Patient Health Questionnaire-2 Score 0 05/05/2025 Comments No Sex and Gender Information Value Date Recorded Sex Assigned at Female 03/25/2025 3:17 PM CDT Legal Sex Female 3:16 PM INSPECTOR EXPERIMENTAL ASSEMBLY Gender Identity Not on file Sexual Orientation Not on file documented as of this encounter Functional Status * RETIRED Are you deaf or do you have serious difficulty hearing Answer Date of Assessment Author Status No 08/13/2022 9:32 PM INSPECTOR EXPERIMENTAL ASSEMBLY Activ e * RETIRED Are you blind or do you have serious difficulty seeing, even when wearing glasses? Answer Date of Assessment Author Status No 08/13/2022 9:32 PM INSPECTOR EXPERIMENTAL ASSEMBLY Activ e * Do you have serious [...] Jefferson RN Active documented in this encounter Plan of Treatment Upcoming Encounters Date Type Department Care Team (Late st Contact Info) Description 07/10/2025 2:40 PM CDT Office Visit [facility] Family & Internal Medicine [address] [phone] Manuel Moore MD [address] [place] [id number] documented as of this encounter Goals Goal Patient Goal Type Associated Problems Recent Progress Patient-Stated? Author Health - patient able to perform ADLs independently Lifestyle No Angel Mcbride i RN documented as of this encounter Visit Diagnoses Not on filedocumented in this encounter Care Teams Wardrobe Supervisor Relationship Specialty Start Date End Date Manuel Moore MD [address] [place] [id number] PCP - General INTERNAL MEDICINE 03/25/25 documented as of this encounter
--- OUTSIDE RECORDS SUMMARY | 2025-06-07 10:29 | XMS_ITS | Clinical Summary ---
Author Organization [facility] Address [address] [facility] [place] [address] Care Team Providers Care Senior Interior Designer Name Role Phone Solo Jama Primary Care Provider Scotty Saini MD Unavailable [phone] Nitin Carpenter MD Unavailable [phone] Source Comments [facility],non-owned Affiliates and Associated Physician Practices is amultiple site organization consisting of ambulatory clinics and hospital sitesin [place], [place], [place] and [place]. This disclosure is being madepursuant to the Care Everywhere program and may not contain all information available regarding this patient. Last updated 18.[facility] [employer] Allergies Active Allergy Reactions Criticality Noted Date [...] (09/26/2023): Added automatically from request for surgery [id number] Kidney stone 08/13/2022 09/26/2023 Overview (09/26/2023): Added automatically from request for surgery [id number] Left leg pain 06/22/2022 09/26/2023 PAD (peripheral [...] Care Team (Late st Contact Info) Description 06/18/2025 3:45 PM CDT Office Visit [facility] - [employer]LOBAL REGULATORY AFFAIRS MANAGER [address] [place] [phone] Nitin Carpenter MD [address] [place] [phone] Health Maintenance Due Date Last Done Comments BONE DENSITY TESTING 1945 MEDICARE AWV 12 MONTHS 1945 DTAP/TDAP/TD VACCINES (1 - Tdap) 1965 PNEUMOCOCCAL VACCINE 50+ (1 of 1 - PCV) 01/04/1996 ZOSTER VACCINE (1 of 2) 01/04/1996 Respiratory Syncytial Virus (RSV) Vaccine Pt: or over 60 yrs (1 - 1-dose 75+ series) 2021 DEPRESSION SCREENING 10/02/2024 04/19/2022 COVID-19 VACCINE (4 - 2025-2 6 season) 2025 07/26/2021, 12/04/2020, 11/04/2020 INFLUENZA VACCINE (#1) 2025 HEPATITIS B VACCINE Aged Out No [...] topic Insurance MEDICARE MEDICAID - OUT OF STATE MEDICARE [facility] [place] [phone] MEDICARE [facility] SPECIALTY RISK Care Teams Senior Interior Designer Relationship Specialty Start Date End Date Solo Jama DO [address] [facility] [address] [facility] [address] [place] [address] PCP - General 03/16/18 Scotty Saini MD [address] [facility] [address] [place] [address] [employer]ox Machine Operator Obstetrics and Gynecology 06/18/21 Nitin Carpenter MD [address] [address] [employer] Machine Operator Obstetrics and Gynecology 06/18/21
--- OUTSIDE RECORDS SUMMARY | 2025-06-07 10:29 | XMS_ITS | Clinical Summary ---
Author Organization [facility] Address [address] [place] [address] Care Team Providers Care Chip Loft Worker Name Role Phone Manuel Moore MD Primary Care Provider [phone] Allergies Active Allergy Reactions Criticality Noted Date Comments Rosuvastatin Myalgias 03/25/2025 Medications * This document contains information received [...] every morning. Active vitamin D2, ergocalciferol, (DRISDOL) 29819 UNITS capsule Take 50,000 Units by mouth every 7 days. On Fridays Active melatonin 5 MG tablet Take 5 mg by mouth nightly at bedtime. Active calcium carbonate (TUMS EX) 750 MG chewable tablet Chew 2 tablets by mouth 3 (three) times daily as needed for Heartburn. Active ELIQUIS 5 MG tablet Take 1 tablet (5 mg total) by mouth 2 (two) times daily. Active amLODIPine (NORVASC) 5 MG tablet Take 1 tablet (5 mg total) by mouth daily. Active flecainide (TAMBOCOR) 50 MG tablet Take 1 tablet (50 mg total) by mouth 2 (two) times daily. 5 02/27/20 26 Active aspirin 81 MG chewable tablet Chew 1 tablet (81 mg total) by mouth daily. Active probiotic (FLORAJEN3) Cap capsule Take 1 capsule by mouth daily with breakfast. Active cyclobenzaprine (FLEXERIL) 10 MG tablet Take 1 tablet (10 mg total) by mouth. Active hydroxychloroqui ne (PLAQUENIL) 200 MG tablet Take 1 tablet (200 mg total) by mouth 2 (two) times daily. 5 Active PRALUENT 75 MG/ML injection (PEN) INJECT 75MG UNDER THE SKIN EVERY 14 DAYS 5 Active pantoprazole EC (PROTONIX) 40 MG tabletIndication s:Gastroesophage al reflux disease without esophagitis Take 1 tablet (40 mg total) by mouth daily. 90 tablet 3 5 Active pantoprazole EC 40 MG tablet Take 40 mg by mouth daily. 05/14/20 25 Discontinu ed(Reorder ) Active Problems Problem Noted Date Diagnosed Date Kyphosis deformity of spine 03/25/2025 Spinal stenosis 03/25/2025 Hyperlipidemia LDL goal <70 12/28/2022 Kidney stone 08/13/2022 Overview (08/13/2022): Added automatically from request for surgery [id number] PAD (peripheral artery disease) 06/22/2022 Palpitations 07/22/2021 Anxiety 07/05/2021 Hypothyroidism 07/05/2021 Primary hypertension 07/05/2021 Chronic rhinitis 06/26/2018 Resolved Problems Problem Noted Date Diagnosed Date Resolved Date Ureteral dilatation 10/26/2022 03/25/20 25 Encounters Date Type Department Care Team Description 05/22/2025 Results Follow-Up [facility] Family & Internal Medicine [address] [phone] Yasmani Vu, SOLUBLE TRANSFERRIN RECEPTOR 05/21/2025 Results Follow-Up [facility] Family & Internal Medicine [address] [phone] Manuel Moore MD IRON SAT PANEL (IRON,IBC,%SAT), FERRITIN, HAPTOGLOBIN, QUANT, Additional followed-up results: 5 05/20/[address] [address] Manuel Moore MD Lab Results 05/15/2025 1:40 PM CDT Laboratory Only [address] [phone] Yasmani Vu DO 05/15/2025 - 05/15/2025 11:59 PM CDT Hospital Encounter [facility] [address] Yasmani Vu DO Discharge Disposition: Home or Self Care (Routine Discharge) 05/15/2025 Travel 05/13/[address] [address] Manuel Moore MD Medication Request 05/13/[address] [address] Manuel Moore MD Advice; Lab Results 05/05/2025 1:40 PM CDT Office Visit [address] [phone] Manuel Moore MD Cough (Pt c/o continued productive cough, diarrhea, body aches, increased fatigue, and weird sensation in chest with inspiration. starting 04/10/25, pt had a negative covid test at that time. ); Weakness 05/05/2025 Travel 04/17/[address] [phone] Manuel Moore MD Medication Request 03/25/2025 3:00 PM CDT Office Visit [address] [place] [address] Manuel Moore MD Establish Care (Unable to reconcile patient's medications. Patient will have family member send an updated list to office for reconciliation. ); Palpitations (Patient states she has been having palpitations for the last few years which worsened recently. Her previous PCP referred her to cardiology. Patient is scheduled for a cardiac ablation on 04/07/25. ) 03/25/2025 Travel from Last 3 Months Family History Medical History Relation Comments Kidney Stones Brother Breast Cancer Daughter Heart Disease Father Heart Disease Mother Breast Cancer Sister Relation Status Comments Brother Daughter Father Mother Sister Social History Tobacco Use Types Packs/Day Years Used Date Smoking Tobacco: Former Cigarettes 1 2001 Smokeless Tobacco: Never Tobacco Cessation:Counseling Given: Yes Alcohol Use Standard Drinks/Week Comments Not Currently 0 (1 standard drink = 0.6 oz pur e alcohol) PHQ-2 Answer Date Recorded Patient Health Questionnaire-2 Score 0 05/05/2025 Comments No Sex and Gender Information Value Date Recorded Sex Assigned at Female 03/25/2025 3:17 PM CDT Legal Sex Female 3:16 PM OREMAN Gender Identity Not on file Sexual Orientation Not on file Last Filed Vital Signs Vital Sign Reading Time Taken Comments Blood Pressure 138/70 05/05/2025 1:53 PM CDT Pulse 74 05/05/2025 1:53 PM CDT Temperature 36.5 C (97.7 F) 05/05/2025 1:53 PM CDT Respiratory Rate 12 05/05/2025 1:53 PM CDT Oxygen Saturation 98% 05/05/2025 1:53 PM CDT Inhaled Oxygen Concentration - - Weight 66.8 kg (147 lb 4.8 oz) 05/05/2025 1:53 P M CDT Height 165.1 cm (5' 5) 05/05/2025 1:53 PM CDT Body Mass Index 24.51 05/05/2025 1:53 PM CDT Plan of Treatment Upcoming Encounters Date Type Department Care Team (Late st Contact Info) Description 07/10/2025 2:40 PM CDT Office Visit [facility] Family & Internal Medicine [address] [phone] Manuel Moore MD [address] [place] [phone] Health Maintenance Due Date Last Done Comments Hepatitis C 01/04/1963 DTaP, Tdap and Td Vaccines ( 1 - Tdap) 1965 Zoster Vaccines (1 of 2) 01/04/1996 Annual Medicare Wellness Visit 2011 Dexa Scan (General) 2011 RSV Immunization or 60+ Years (1 - 1-dose 75+ series) 2021 ASCVD LDL 07/21/2021 07/21/2020 COVID-19 Vaccine (2024-2 6 season) 2025 07/26/2021, 12/04/2020, 11/06/2020 Pneumococcal Vaccine: 50+ Years Completed 07/12/2024 PHQ-2 (Physician [place]) Completed 05/05/2025 Meningococcal B Vaccine Aged Out No l [...] perform ADLs independently Lifestyle No Angel Mcbride i, RN Medical Devices Implanted Type Area Emergency Management Consultant Device Identifier Shelf Expiration Date Model / Serial / Lot Stent Ureteral [place] Sci Contour 6fr X 26cm - [id number] Implanted:Qty : 1 on 08/13/2022 by Cameron Bautista MD at [facility] Stent Right: Ureter [employer] [id number] 06/07/2025 [id number] / [id number] Stent Ureteral [place] Sci Contour 6fr X 24cm - [id number] Implanted:Qty : 1 on 09/08/2022 by Cameron Bautista MD at [facility] Stent Right: Ureter [employer] 05/04/2025 [id number] / [id number] Procedures Procedure Name Priority Date/Time Associated Diagnosis Comments COLLECTION VENOUS BLOOD VENIPUNCTURE Routine 05/15/2025 2:15 PM CDT Anemia LDH, LACTATE DEHYDROGENASE Routine 05/15/2025 2:15 PM CDT Anemia SOLUBLE TRANSFERRIN RECEPTOR Routine 05/15/2025 1:23 PM CDT Anemia CBC W/DIFF AUTOMATED Routine 05/15/2025 1:23 PM CDT Anemia VITAMIN B-12 Routine 05/15/2025 1:23 PM CDT Anemia FOLIC ACID SERUM Routine 05/15/2025 1:23 PM CDT Anemia RETICULOCYTE CT, AUTO Routine 05/15/2025 1:23 PM CDT Anemia HAPTOGLOBIN, QUANT Routine 05/15/2025 1: 23 PM CDT Anemia FERRITIN Routine 05/15/2025 1:23 PM CDT Anemia IRON SAT PANEL (IRON,IBC,%SAT) Routine 05/15/2025 1:23 PM CDT Anemia COLLECTION VENOUS BLOOD VENIPUNCTURE Routine 05/05/2025 4:24 PM CDT Fatigue, unspecified type CBC W/DIFF AUTOMATED Routine 05/05/2025 4:24 PM CDT Fatigue, unspecified type COMPREHENSIVE METABOLIC PANEL Routine 05/05/2025 4:24 PM CDT Fatigue, unspecified type LIPID PANEL Routine 07/21/2020 12:01 PM CDT Diabetes mellitus Fatigue from Last 3 Months or Most Recently Relevant to Health Maintenance Results * LDH, LACTATE DEHYDROGENASE (05/15/2025 2:15 PM CDT) LDH 179 84 - 246 UNITS/L 05/15/2025 9:18 PM CDT [facility] 05/15/2025 2:15 PM CDT Manuel Moore MD LABORATORY Final Result Performing Organization Address City/[facility]/ZIP Co de Phone Number [facility] [address] [place] [address], [phone] * SOLUBLE TRANSFERRIN RECEPTOR (05/15/2025 1:23 PM CDT) SOLUBLE TRANSFERRIN RECEPTOR 1.39 0.76 - 1.76 mg/L [facility] 05/15/2025 1:23 PM CDT 05/17/2025 3:49 AM CDT Narrative Resulting Agency Comment Performing Organization Information: Site ID: [id number] Name: [facility], Address: [address] [place] [id number] Director: Mary Smith MD,PhD,PRIMO Yasmani Vu DO LABORATORY Final Re sult Performing Organization Address [facility] Co de Phone Number [facility] [address] [address], [place] * (ABNORMAL) IRON SAT PANEL (IRON,IBC,%SAT) (05/15/2025 1:23 PM CDT) IRON 45(L) 50 - 170 MCG/DL 05/16/2025 11:32 AM CDT [facility] IRON BINDING CAPACITY 257 250 - 450 MCG/DL 05/16/2025 11:32 AM CDT [facility] IRON SATURATION 18 % 11:32 AM CDT [facility] Comment:REFERENCE RANGE NOT ESTABLISHED 05/15/2025 1:23 PM CDT Manuel Moore MD LABORATORY Final Result Performing Organization Address [facility]/ZIP Co de Phone Number [facility] [address] [place] [address], * VITAMIN B-12 (05/15/2025 1:23 PM CDT) Pathologist [facility] VITAMIN B12 S/P/B 356 193 - 986 PG/ML 05/16/2025 11:32 AM CDT [facility] 05/15/2025 1:23 PM CDT us Manuel Moore MD LABORATORY Final Result Performing Organization Address [facility] Co de Phone Number [facility] [address] [place] [address], * (ABNORMAL) RETICULOCYTE CT, AUTO (05/15/2025 1:23 PM CDT) Pathologist [facility] RETICULOCYTE COUNT 1.4 0.6 - 2.3 % 05/15/2025 9:[address] [facility] ABSOLUTE RETICULOCYTE 0.04 0.02 - 0.10 x10'6/uL 05/15/2025 9:[address] [facility] IMMATURE RETIC FRACTION 9.1 3.0 - 15.9 % 05/15/2025 9:[address] [facility] RETIC HGB 35.5(H) 28.0 - 35.0 PG 05/15/2025 9:[address] [facility] 05/15/2025 1:23 PM CDT us Manuel Moore MD LABORATORY Final Result Performing Organization Address City/[facility]/ZIP Co de Phone Number [facility] [address] [place] [address], [place] [phone] * (ABNORMAL) HAPTOGLOBIN, QUANT (05/15/2025 1:23 PM CDT) Pathologist [facility] HAPTOGLOBIN 217.0(H) 30.0 - 200.0 MG/DL 05/15/2025 9:[address] [facility] 05/15/2025 1:23 PM CDT us Manuel Moore MD LABORATORY Final Result [facility] [address] [place] [address], [place] [phone] * FOLIC ACID SERUM (05/15/2025 1:23 PM CDT) Pathologist [facility] FOLATE >20.0 8.6 - 58.9 NG/ML 05/15/2025 8:07 PM CDT [facility] 05/15/2025 1:23 PM CDT us Manuel Moore MD LABORATORY Final Result Performing Organization Address City/[facility]/ZIP Co de Phone Number [facility] [address] [place] [address], [place] [phone] * (ABNORMAL) CBC W/DIFF AUTOMATED (05/15/2025 1:23 PM CDT) Only the most recent of2 resultswithin the time period is included. Pathologist [facility] WBC 6.60 4.00 - 10.80 x10'3/uL 05/15/2025 8:02 PM CDT [facility] RBC 3.13(L) 4.10 - 5.40 x10'6/uL 05/15/2025 8:02 PM CDT [facility] HGB 10.3(L) 12.0 - 16.0 G/DL 05/15/2025 8:02 PM CDT [facility] HCT 31.9(L) 36.0 - 47.0 % 05/15/2025 8:02 PM CDT [facility] MCV 101.9(H) 78.0 - 100.0 FL 05/15/2025 8:02 PM CDT [facility] MCH 32.9(H) 27.0 - 31.0 PG 05/15/2025 8:02 PM CDT [facility] MCHC 32.3(L) 33.0 - 36.0 G/DL 05/15/2025 8:02 PM CDT [facility] RDW 13.2 11.5 - 14.5 % 05/15/2025 8:02 PM CDT [facility] PLT 329 150 - 350 x10'3/uL 05/15/2025 8:02 PM CDT [facility] MPV 9.7 7.4 - 10.4 FL 05/15/2025 8:02 PM CDT [facility] DIFFERENTIAL TYPE AUTOMATED DIFFERENTIAL 05/15/2025 8:03 PM CDT [facility] NEUTROPHILS % 55.4 % 05/15/2025 8:03 PM T [facility] LYMPHOCYTES % 31.7 % 05/15/2025 8:03 PM CDT [facility] MONOCYTES % 7.6 % 05/15/2025 8:03 PM CDT [facility] EOSINOPHILS % 4.5 % 05/15/2025 8:03 PM CDT [facility] BASOPHILS % 0.6 % 05/15/2025 8:03 PM CDT [facility] IMMATURE GRANS % 0.2 % 05/15/2025 8:03 PM CDT [facility] ABS. NEUTROPHILS 3.66 1.60 - 8.30 x10'3/uL 05/15/2025 8:03 PM CDT [facility] ABS. LYMPHOCYTES 2.09 0.80 - 4.70 x10'3/uL 05/15/2025 8:03 PM CDT [facility] ABS. MONOCYTES 0.50 0.00 - 1.50 x10'3/uL 05/15/2025 8:03 PM CDT [facility] ABS. EOSINOPHILS 0.30 0.00 - 0.40 x10'3/uL 05/15/2025 8:03 PM CDT [facility] ABS. BASOPHILS 0.04 0.00 - 0.20 x10'3/uL 05/15/2025 8:03 PM CDT [facility] ABS. IMMATURE GRANULOCYTES 0.01 0.00 - 0.03 x10'3/uL 05/15/2025 8:03 PM CDT [facility] 05/15/2025 1:23 PM CDT us Manuel Moore MD LABORATORY Final Result Performing Organization Address City/[facility]/ZIP Co de Phone Number [facility] [address] [place] [address], * FERRITIN (05/15/2025 1:23 PM CDT) FERRITIN 154.0 8 - 252 NG/ML 05/16/2025 11:32 AM CDT [facility] 05/15/2025 1:23 PM CDT us Manuel Moore MD LABORATORY Final Result [facility] [address] [place] [address], * (ABNORMAL) COMPREHENSIVE METABOLIC PANEL (05/05/2025 4:24 PM CDT) SODIUM S/P/B 141 136 - 145 MMOL/L 05/06/2025 10:06 AM CDT [facility] POTASSIUM S/P/B 4.6 3.5 - 5.1 MMOL/L 05/06/2025 10:06 AM CDT -[facility] CHLORIDE S/P/B 105 98 - 107 MMOL/L 05/06/2025 10:06 AM CDT -[facility] CO2 27.4 21 - 32 MMOL/L 05/06/2025 10:06 AM CDT -[facility] GLUCOSE 108(H) 70 - 99 MG/DL 05/06/2025 10:06 AM CDT [facility] BUN 16 7 - 18 MG/DL 05/06/2025 10:06 AM CDT -[facility] CREATININE S/P/B 0.87 0.55 - 1.02 MG/DL 05/06/2025 10:06 AM CDT [facility] CALCIUM S/P/B 9.7 8.4 - 10.5 MG/DL 05/06/2025 10:06 AM CDT [facility] BILIRUBIN TOTAL S/P/B 0.2 0.2 - 1.0 MG/DL 05/06/2025 10:06 AM CDT [facility] ALKALINE PHOSPHATASE S/P/B 74 55 - 142 U/L 05/06/2025 10:06 AM CDT [facility] AST 14(L) 15 - 37 U/L 05/06/2025 10:06 AM CDT [facility] ALT 19 14 - 59 U/L 05/06/2025 10:06 AM CDT [facility] TOTAL PROTEIN S/P/B 7.5 6.4 - 8.2 G/DL 05/06/2025 10:06 AM CDT [facility] ALBUMIN S/P/B 3.7 3.4 - 5.0 G/DL 05/06/2025 10:06 AM CDT [facility] ANION GAP 8.6 5 - 15 MMOL/L 05/06/2025 10:06 AM CDT [facility] Comment:REFERENCE RANGE NOT ESTABLISHED OSMOLALITY (CALC) 294 MOSM/KG 025 10:06 AM CDT [facility] Comment:REFERENCE RANGE NOT ESTABLISHED GFR ESTIMATE 68(L) >90 ML/MIN/1. 73 M2 05/06/2025 10:06 AM T [facility] GFR NOTES GFR REFERENCE S: 05/06/2025 10:06 AM T [facility] Comment: THE ESTIMATED GFR IS CALCULATED USING THE 2020 CKD-EPI EQUATION. THE FOLLOWING CATEGORIES FOR GRADING RENAL FUNCTION ARE RECOMMENDED BY THE INTERNATIONAL SOCIETY OF NEPHROLOGY (KDIGO 2012 CLINICAL PRACTICE GUIDELINE). G1,NORMAL OR HIGH: >89 ml/min/1.73 m2 G2,MILDLY DECREASED: 60-89 ml/min/1.73 m2 G3A,MILDLY TO MODERATELY DECREASED: 45-59 ml/min/1.73 m2 G3B,MODERATELY TO SEVERELY DECREASED: 30-44 ml/min/1.73 m2 G4,SEVERELY DECREASED: 15-29 ml/min/1.73 m2 G5,KIDNEY FAILURE: <15 ml/min/1.73 m2 05/05/2025 4:24 PM CDT Manuel Moore MD LABORATORY Final Result [facility] [address] [place] [address], * (ABNORMAL) LIPID PANEL (07/21/2020 12:01 PM CDT) CHOLESTEROL 219(H) <200.0 MG/DL 07/21/2020 1:17 PM CDT [facility] TRIGLYCERIDES 94 <150 MG/DL 07/21/2020 1:17 PM CDT [facility] HDL 89 >40.0 MG/DL 07/21/2020 1:17 PM CDT [facility] LDL (CALCULATED) 111(H) <100 MG/DL 07/21/2020 1:17 PM CDT [facility] NON HDL CHOLESTEROL 130(H) <130 MG/DL 07/21/2020 1:17 PM CDT [facility] CHOL/HDL RATIO 2.5 0.0 - 4.5 07/21/2020 1:17 PM CDT [facility] VLDL CALCULATION 19 5 - 55 MG/DL 07/21/2020 1:17 PM CDT [facility] LIPID INTERPRETATION 07/21/2020 1:17 PM CDT [facility] Comment: [facility] REPORT RECOMMENDATIONS: ADULT CHILD LOW RISK: CHOLESTEROL <200 <170 TRIGLYCERIDE <150 --- HDL >=60 --- LDL <100 <110 BORDERLINE: CHOLESTEROL 200-239 170-199 TRIGLYCERIDE 150-199 --- HDL 40-59 --- LDL 100-159 110-129 HIGH RISK: CHOLESTEROL >=240 >=200 TRIGLYCERIDE >=200 --- HDL <40 --- LDL >=160 >=130 07/21/2020 12:0 1 PM CDT Solo Jama MD LABORATORY Final Result [facility] [address] [place] [address], from Last 3 Months or Most Recently Relevant to Health Maintenance Insurance MEDICARE [facility] Advance Directives * Full Code (Latest Code Status on File) Date Activated Date Inactivated Comments 09/08/2022 10:15 AM 09/08/2022 2:52 PM * Full Code Date Activated Date Inactivated Comments 08/13/2022 8:54 PM 08/16/2022 2:13 PM Care Teams Chip Loft Worker Relationship Specialty Start Date End Date Manuel Moore MD [address] [place] [id number] PCP - General INTERNAL MEDICINE 03/25/25
[2025-06-07 11:10] LABS: Hematocrit 31.1 % (37.0-47.0); Hemoglobin 10.2 g/dL (12.0-15.0); Immature Granulocyte Percent A 0.2 % (0-0.5); Lymphocytes Absolute Auto 2.12 K/mm3 (0.9-3.2); Mean Corpuscular HGB Conc 32.8 g/dl (32-36); Mean Corpuscular Hemoglobin 32.3 pg (26-34); Mean Corpuscular Volume 98.4 fl (80-100); Nucleated Red Blood Cells Absolute Auto 0.000 K/mm3 (0.0-0.012); Nucleated Red Blood Cells Perc 0.0 % (0.0-0.2); Platelet Count Result 336 k/mm3 (150-375); Red Blood Count 3.16 M/mm3 (4.2-5.4); White Blood Count 6.7 K/mm3 (4.5-10.0)
[2025-06-07 11:21] LABS: Magnesium 1.6 mg/dL (1.6-2.3)
[2025-06-07 11:24] LABS: CRP 3.9 mg/dL (<1.0)
[2025-06-07 11:26] LABS: Alanine Aminotransferase 11 U/L (6-35); Albumin Level 3.9 g/dL (3.5-5.1); Alkaline Phosphatase 71 U/L (38-126); Anion Gap 5 mmol/L (4-12); Aspartate Amino Transferase 19 U/L (14-36); Bilirubin,Total 0.3 mg/dL (0.2-1.3); Blood Urea Nitrogen 13 mg/dL (7-17); Calcium 10.1 mg/dL (8.4-10.2); Carbon Dioxide 27 mmol/L (22-30); Chloride 105 mmol/L (98-107); Estimated CRCL calculation 45 ml/min; Estimated Glomerular Filt Rate > 60; Glucose 111 mg/dL (65-110); Potassium 4.2 mmol/L (3.4-5.0); Sodium 137 mmol/L (137-145); Total Protein 7.6 g/dL (6.3-8.2)
[2025-06-07 11:38] LABS: NT Pro B Type Natriuretic Pept 404 pg/mL (19.9-100); Troponin I < 0.012 ng/mL (0.000-0.034)
[2025-06-07 11:57] LABS: Thyroid Stimulating Hormone 0.396 uIU/mL (0.465-4.680)
[2025-06-07 12:27] LABS: Creatine Kinase < 20 U/L (30-135)
--- NOTE | 2025-06-07 12:33 | PC.NURSE ---
spoke to lab about adding on T3 and T4 to blood tubes already sent down to labratory
[2025-06-07 12:41] LABS: Add Urine Microscopic? NO; Appearance Urine Clear (Clear); Glucose Urine UA Negative (Negative); Leukocyte Esterase Ur Negative LEU/UL (Negative); Nitrate Urine Negative (Negative); Specific Grav Ur 1.007 (1.001-1.035)
[2025-06-07 13:04] LABS: Free T4 Free Thyroxine 1.26 ng/dL (0.78-2.19)
[2025-06-07 13:08] LABS: Free T3 3.30 pg/mL (2.45-5.93)
[2025-06-07 13:34] LABS: Influenza A QL RT-PCR Negative (Negative); Influenza B QL RT-PCR Negative (Negative); RSV RNA, RT-PCR Negative (Negative); SARS-CoV-2 RNA PCR Negative (Negative)
== END 2025-06-07 16:26 | disposition home or self-care (01) ==
PROVIDERS: Emergency Provider Student in an Organized Health Care Education/Training Program; PCP Internal Medicine
DX: R53.1 Weakness (principal); E05.90 Thyrotoxicosis, unspecified without thyrotoxic crisis or storm; R70.0 Elevated erythrocyte sedimentation rate; K44.9 Diaphragmatic hernia without obstruction or gangrene; M16.12 Unilateral primary osteoarthritis, left hip; M19.011 Primary osteoarthritis, right shoulder; M47.816 Spondylosis without myelopathy or radiculopathy, lumbar region; R06.02 Shortness of breath; Z20.822 Contact with and (suspected) exposure to COVID-19; Z96.641 Presence of right artificial hip joint; Z87.891 Personal history of nicotine dependence; I44.0 Atrioventricular block, first degree; R94.31 Abnormal electrocardiogram [ECG] [EKG]; Z79.899 Other long term (current) drug therapy
CPT/HCPCS: 36415; 71045; 73030; 73502; 80053; 81003; 82550; 83735; 83880; 84439; 84443; 84481; 84484; 85025; 85380; 85652; 86140; 87637; 93005; 99284